=== PATIENT | female | born 1965 | race Caucasian/White ===

== ENCOUNTER 2018-07-19 11:05 | Emergency (ER) | payer OTHER ==
[2018-07-19 11:15] VITALS: BP 120/56; PULSE 64; RESP 18; TEMP 97.7
--- NOTE | 2018-07-19 11:50 | ED ---
General Adult HPI - General Chief complaint: Skin/Abscess/Foreign Body Stated complaint: blisters on hands and arms Time Seen by Provider: 07/19/18 11:16 Source: patient Limitations: no limitations - History of Present Illness Initial comments: Patient is a 53-year-old female with a history of COPD who presents with a chief complaint of itchiness and blisters to her bilateral hands. This is been going on for 3 days. Patient says that she has a history of eczema and that this is happened to her before. Patient states that at home she has use hydrocortisone cream for relief over the last day but it is not made a difference. She cannot identify any other inciting factors. There are no aggravating or alleviating factors. Patient states that she does live with other people and she is the only one affected by these symptoms. Patient denies lesions anywhere else, she states that she otherwise feels well. - Related Data Home Medications Medication Instructions Recorded Confirmed ALPRAZolam [Xanax] 1 mg PO BID 05/07/16 05/07/16 Dextroamphetamine/Amphetamine 20 mg PO TID 05/07/16 05/07/16 [Adderall] FLUoxetine HCL [PROzac] 60 mg PO DAILY 05/07/16 05/07/16 Ziprasidone [Geodon] 60 mg PO DAILY 05/07/16 05/07/16 oxyCODONE-APAP 10-325MG [Percocet 1 tab PO TID 05/07/16 05/07/16 10-325 mg] traZODone HCL [Desyrel] 100 mg PO HS 05/07/16 05/07/16 Previous Rx's Medication Instructions Recorded Triamcinolone 0.1% Cream [Kenalog 1 applicatio TOPICAL BID #15 gram 05/07/16 0.1% Cream] hydrOXYzine HCL [Atarax] 25 mg PO TID PRN #15 tab 05/07/16 Permethrin [Nix] 60 ml TP Q7D #1 bottle 07/19/18 hydrOXYzine HCL [Atarax] 50 mg PO QID PRN #20 tab 07/19/18 Allergies Allergy/AdvReac Type Severity Reaction Status Date / Time No Known Allergies Allergy Verified 05/07/16 16:51 Review of Systems ROS Statement: Those systems with pertinent positive or pertinent negative responses have been documented in the HPI. ROS Other: All systems not noted in ROS Statement are negative. Skin: Reports: lesions Past Medical History Past Medical History: COPD History of Any Multi-Drug Resistant Organisms: None Reported Past Surgical History: Section Additional Past Surgical History / Comment(s): 2 Chest tubes Past Psychological History: Anxiety, Bipolar, Depression Smoking Status: Current every day smoker Past Alcohol Use History: None Reported Past Drug Use History: None Reported General Exam Limitations: no limitations General appearance: alert, in no apparent distress Head exam: Present: atraumatic, normocephalic Eye exam: Present: normal appearance, PERRL ENT exam: Present: normal exam, mucous membranes moist Neck exam: Present: normal inspection Respiratory exam: Present: normal lung sounds bilaterally. Absent: respiratory distress Cardiovascular Exam: Present: regular rate, normal rhythm GI/Abdominal exam: Present: soft. Absent: distended, tenderness Rectal exam: Present: deferred Extremities exam: Present: normal inspection Back exam: Present: normal inspection Neurological exam: Present: alert, oriented X3 Psychiatric exam: Present: normal affect, normal mood Skin exam: Present: warm, dry, intact, other (Patient has small excoriations on the dorsal aspect of her bilateral hands, and in the webspaces of her fingers. There are small lesions proximally on her volar forearms. There is no draining or erythema noted. No foreign bodies identified) Course Vital Signs 07/19/18 11:11 Temperature 97.7 F Pulse Rate 64 Respiratory 18 Rate Blood Pressure 120/56 O2 Sat by Pulse 98 Oximetry Medical Decision Making - Medical Decision Making Patient presents with a chief complaint of itching and excoriations to her bilateral hands. On initial evaluation, vitals are stable, patient is in no acute distress. Patient states that she has been using hydrocortisone cream without relief. At this time, exam is most consistent with possible scabies however there are no ticks identified. Patient was instructed to continue using the hydrocortisone cream. She will be prescribed Atarax, and permethrin for treatment. She was instructed to follow up with primary care in 1-2 days, or return to the emergency department if new or concerning symptoms arise. Care plan was discussed with the patient, she verbalizes agreement. Disposition Clinical Impression: Urticaria Disposition: HOME SELF-CARE Condition: Good Instructions: Scabies (ED), Urticaria (ED) Is patient prescribed a controlled substance at d/c from ED?: No Referrals: Makenzie Ruby, [Primary Care Provider] - 1-2 days
== END 2018-07-19 12:03 | disposition home or self-care (01) ==
LOC: EC 11:05
DX: L50.9 Urticaria, unspecified (principal); F31.9 Bipolar disorder, unspecified; F41.9 Anxiety disorder, unspecified; F17.200 Nicotine dependence, unspecified, uncomplicated; Z79.899 Other long term (current) drug therapy; Z79.891 Long term (current) use of opiate analgesic
CPT/HCPCS: 99282

== ENCOUNTER → 2018-08-22 | Outpatient (CLI) | payer OTHER ==
--- NOTE | 2018-08-25 10:50 | MM ---
Reason for exam: screening (asymptomatic). Last mammogram was performed 3 years ago. History: Patient is postmenopausal. Physical Findings: A clinical breast exam by your physician is recommended on an annual basis and results should be correlated with mammographic findings. MG Screening Mammo w CAD Bilateral CC and MLO view(s) were taken. Prior study comparison: August 10, 2015, bilateral MG screening mammo w CAD. May 26, 2014, bilateral MG screening mammo w CAD. The breast tissue is heterogeneously dense. This may lower the sensitivity of mammography. There is no discrete abnormality. ASSESSMENT: Negative, BI-RAD 1 RECOMMENDATION: Routine screening mammogram of both breasts in 1 year.
== END | disposition home or self-care (01) ==
LOC: RADMAMWWP 09:14
PROVIDERS: ATTEND Family Medicine
DX: Z12.31 Encounter for screening mammogram for malignant neoplasm of breast (principal)
CPT/HCPCS: 77067

== ENCOUNTER 2019-03-21 13:49 | Emergency (ER) | payer OTHER ==
[2019-03-21 14:15] VITALS: BP 112/69; PULSE 73; RESP 18; TEMP 98.1
[2019-03-21] MEDS ORDERED: KETOROLAC 30 MG/ML 1 ML VIAL IM STA (15:14)
--- NOTE | 2019-03-21 15:23 | ED ---
General Adult HPI - General Chief complaint: Extremity Injury, Upper Stated complaint: Arm pain Source: patient Mode of arrival: ambulatory - History of Present Illness Initial comments: Patient is a 53-year-old female presenting to the emergency department with right wrist pain. Patient states that about 2 years ago she broke her wrist and the orthopedic service to do a proper job splinting her hand causing her a permanent deformity. Patient states that ever since she is living with chronic pain in her wrist and anterior forearm. Patient states that about 2 weeks ago the pain has gotten a worse than usual. Patient states that she feels pain along the anterior aspect of the forearm that radiates on the anterior aspect of her hand. Patient states that she feels numbness and tingling on the fourth and fifth digit. Patient also states that she has pain around the first digit. Patient states that she also has pain in the posterior aspect of the wrist. Patient states that she been taking Tylenol and ibuprofen for pain control. Patient denies any recent to her hand. - Related Data Home Medications Medication Instructions Recorded Confirmed ALPRAZolam [Xanax] 1 mg PO BID 05/07/16 05/07/16 Dextroamphetamine/Amphetamine 20 mg PO TID 05/07/16 05/07/16 [Adderall] FLUoxetine HCL [PROzac] 60 mg PO DAILY 05/07/16 05/07/16 Ziprasidone [Geodon] 60 mg PO DAILY 05/07/16 05/07/16 oxyCODONE-APAP 10-325MG [Percocet 1 tab PO TID 05/07/16 05/07/16 10-325 mg] traZODone HCL [Desyrel] 100 mg PO HS 05/07/16 05/07/16 Previous Rx's Medication Instructions Recorded Triamcinolone 0.1% Cream [Kenalog 1 applicatio TOPICAL BID #15 gram 05/07/16 0.1% Cream] hydrOXYzine HCL [Atarax] 25 mg PO TID PRN #15 tab 05/07/16 Permethrin [Nix] 60 ml TP Q7D #1 bottle 07/19/18 hydrOXYzine HCL [Atarax] 50 mg PO QID PRN #20 tab 07/19/18 Ibuprofen [Motrin] 600 mg PO Q8HR PRN #30 tab 03/21/19 Allergies Allergy/AdvReac Type Severity Reaction Status Date / Time No Known Allergies Allergy Verified 03/21/19 14:15 Review of Systems ROS Statement: Those systems with pertinent positive or pertinent negative responses have been documented in the HPI. ROS Other: All systems not noted in ROS Statement are negative. Past Medical History Past Medical History: COPD History of Any Multi-Drug Resistant Organisms: None Reported Past Surgical History: Section Additional Past Surgical History / Comment(s): 2 Chest tubes Past Psychological History: Anxiety, Bipolar, Depression Smoking Status: Current every day smoker Past Alcohol Use History: None Reported Past Drug Use History: None Reported General Exam Limitations: no limitations General appearance: alert, in no apparent distress Head exam: Present: atraumatic, normocephalic, normal inspection Eye exam: Present: normal appearance Respiratory exam: Present: normal lung sounds bilaterally Cardiovascular Exam: Present: regular rate, normal rhythm, normal heart sounds Right Forearm Wrist exam: Present: tenderness, swelling (Mild right wrist), deformity (Deformity at the distal ulna), tenderness over anatomical snuff box, other (Negative tinel test). Absent: full ROM (Limited range of motion with extension and flexion.), abrasion, laceration, ecchymosis Vascular: Present: normal capillary refill, radial pulse (+2), ulnar pulse (+2). Absent: vascular compromise Neurological exam: Present: alert, oriented X3 Psychiatric exam: Present: normal affect, normal mood Skin exam: Present: warm, normal color Course Vital Signs 03/21/19 14:11 Temperature 98.1 F Pulse Rate 73 Respiratory 18 Rate Blood Pressure 112/69 O2 Sat by Pulse 99 Oximetry Medical Decision Making - Medical Decision Making Patient is a 53-year-old female presenting to the emergency department with right wrist pain. X-ray was ordered of the right wrist to rule out any injuries over the anatomical snuffbox. Patient was given a dose of Toradol due to pain. X-ray was unremarkable for any acute fracture as suggested chronic osteophytic changes due to improper fusion of the previous fracture. Patient advised to take ibuprofen to control the pain. Patient also advised to return to the emergency department if symptoms worsen. Patient advised to follow with orthopedics for chronic management. Case discussed with physician. Disposition Clinical Impression: Wrist pain, chronic Disposition: HOME SELF-CARE Condition: Stable Instructions (If sedation given, give patient instructions): Hand Sprain (ED) Additional Instructions: Please see prescribed medication as directed. Please follow-up with orthopedics. Please return to emergency department if symptoms worsen. Is patient prescribed a controlled substance at d/c from ED?: No Referrals: Makenzie Ruby DO [Primary Care Provider] - 1-2 days Kike Jackson MD [STAFF PHYSICIAN] - 1-2 days Time of Disposition: 16:08
--- NOTE | 2019-03-21 15:41 | XR ---
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 Adjacent soft tissue swelling. Degenerative s purring at the distal radial ulnar joint with positive ulnar variance. There is possible abutment of the distal ulna with the proximal ulnar aspect of the lunate. Moderate degenerative changes at the tr iscaphe joint and mild at the base of the thumb. Old healed fracture deformity of the distal radial m etaphysis with dorsal angulation. IMPRESSION: 1. Chronic distal radial fracture deformity, healed in impaction and dorsal angulation. This results in secondary positive ulnar variance. 2. 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 3. Additional chronic ununited fracture fragment of the ulnar styloid process with adjacent soft tiss ue swelling. 4. Moderate OA at the base of the thumb.
== END 2019-03-21 16:30 | disposition home or self-care (01) ==
LOC: EC 13:49
DX: G89.29 Other chronic pain (principal); M25.531 Pain in right wrist; F41.9 Anxiety disorder, unspecified; F32.9 Major depressive disorder, single episode, unspecified; F17.200 Nicotine dependence, unspecified, uncomplicated; Z87.81 Personal history of (healed) traumatic fracture; Z79.891 Long term (current) use of opiate analgesic; Z79.899 Other long term (current) drug therapy
CPT/HCPCS: 73110; 99283; 96372; J1885

== ENCOUNTER 2019-06-30 12:51 | Inpatient (IN) | payer MEDICAID, OTHER ==
[2019-06-30 13:02] VITALS: RESP 18
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
[2019-06-30 16:27] LABS: Amphetamine Screen,Urine Not Detected (NotDetected); Barbiturate Screen,Urine Not Detected (NotDetected); Benzodiazepines Screen,Urine Detected (NotDetected); Cocaine Screen,Urine Detected (NotDetected); Methadone Screen, Urine Not Detected (NotDetected); Opiate Screen,Urine Not Detected (NotDetected); Oxycodone Screen, Urine Not Detected (NotDetected); Phencyclidine Screen,Urine Not Detected (NotDetected); Tricyclic Antidepressant,Urine Not Detected (NotDetected); Urn Cannabinoid Scrn Detected (NotDetected)
[2019-06-30] MEDS ORDERED: HALOPERIDOL LACTATE 5 MG/ML 1 ML VIAL IM PRN (17:35)
[2019-06-30] MEDS ORDERED: MAGNESIUM HYDROXIDE 2,400 MG/10 ML CUP PO PRN (17:36)
[2019-06-30] MEDS ORDERED: MAG HYDROX/AL HYDROX/SIMETH 30 ML CUP PO PRN (17:36)
[2019-06-30 18:27] VITALS: BMI 25.1
[2019-06-30] MEDS ORDERED: PNEUMOCOCCAL VACC-PNEUMOVAX 23 25 MCG/0.5 ML VIAL IM ONE (18:56)
[2019-06-30] MEDS: ZIPRASIDONE 80 MG CAP PO SCH (20:56)
[2019-06-30] MEDS: traZODone HCL 50 MG TAB PO SCH (20:56)
[2019-06-30] MEDS: ACETAMINOPHEN TAB 325 MG TAB PO PRN (20:58)
[2019-06-30] MEDS: ALPRAZolam 0.5 MG TAB PO PRN (20:58)
[2019-07-01 08:08] LABS: Basophils # (A) 0.1 k/uL (0-0.2); Basophils % (A) 1 %; Eosinophils # (A) 0.4 k/uL (0-0.7); Eosinophils % (A) 5 %; HCT 42.2 % (34.0-46.0); HGB 14.3 gm/dL (11.4-16.0); Lymphocytes # (A) 3.7 k/uL (1.0-4.8); Lymphocytes % (A) 52 %; MCH 29.8 pg (25.0-35.0); MCHC 33.8 g/dL (31.0-37.0); MCV 88.3 fL (80.0-100.0); Mean Platelet Volume 6.7; Monocytes # (A) 0.4 k/uL (0-1.0); Monocytes % (A) 6 %; Neutrophils # (A) 2.5 k/uL (1.3-7.7); Neutrophils % (A) 35 %; Platelet Count 316 k/uL (150-450); RBC 4.78 m/uL (3.80-5.40); RDW 13.2 % (11.5-15.5); WBC 7.1 k/uL (3.8-10.6)
[2019-07-01 08:28] LABS: ALT 26 U/L (9-52); AST 30 U/L (14-36); African American GFR (CKD) >90 (>60 ml/min/1.73 sqM); Albumin 3.3 g/dL (3.5-5.0); Alkaline Phosphatase 49 U/L (38-126); Anion Gap 7 mmol/L; Blood Urea Nitrogen 12 mg/dL (7-17); Calcium 9.1 mg/dL (8.4-10.2); Carbon Dioxide 26 mmol/L (22-30); Chloride 108 mmol/L (98-107); Cholesterol 218 mg/dL (<200); Glucose 93 mg/dL (74-99); HDL Cholesterol 52 mg/dL (40-60); LDL Cholesterol,Calculated 121 mg/dL (0-99); Non-African American GFR(CKD) 88 (>60 ml/min/1.73 sqM); Potassium 3.7 mmol/L (3.5-5.1); Sodium 141 mmol/L (137-145); Total Bilirubin 0.2 mg/dL (0.2-1.3); Total Protein 5.8 g/dL (6.3-8.2); Triglycerides 225 mg/dL (<150)
[2019-07-01] MEDS ORDERED: FLUoxetine HCL 20 MG CAP PO SCH (09:00)
[2019-07-01] MEDS: NICOTINE 21MG/24HR PATCH TRANSDERM SCH (10:29)
--- NOTE | 2019-07-01 12:30 | P.HP ---
Psychiatric H&P - . H&P Date: 07/01/19 History & Physical: Allergies Allergy/AdvReac Type Severity Reaction Status Date / Time No Known Allergies Allergy Verified 06/30/19 13:59 Vital Signs Temp 98.6 F 06/30/19 17:00 Pulse 67 06/30/19 16:41 Resp 18 06/30/19 17:00 BP 105/80 06/30/19 17:00 Pulse Ox 97 06/30/19 16:41 Intake & Output 06/30/19 07/01/19 07/01/19 18:59 06:59 18:59 Weight 72.745 kg Laboratory Last Values WBC 7.1 k/uL (3.8-10.6) 07/01/19 07:46 RBC 4.78 m/uL (3.80-5.40) 07/01/19 07:46 Hgb 14.3 gm/dL (11.4-16.0) 07/01/19 07:46 Hct 42.2 % (34.0-46.0) 07/01/19 07:46 MCV 88.3 fL (80.0-100.0) 07/01/19 07:46 MCH 29.8 pg (25.0-35.0) 07/01/19 07:46 MCHC 33.8 g/dL (31.0-37.0) 07/01/19 07:46 RDW 13.2 % (11.5-15.5) 07/01/19 07:46 Plt Count 316 k/uL (150-450) 07/01/19 07:46 Neutrophils % 35 % 07/01/19 07:46 Lymphocytes % 52 % 07/01/19 07:46 Monocytes % 6 % 07/01/19 07:46 Eosinophils % 5 % 07/01/19 07:46 Basophils % 1 % 07/01/19 07:46 Neutrophils # 2.5 k/uL (1.3-7.7) 07/01/19 07:46 Lymphocytes # 3.7 k/uL (1.0-4.8) 07/01/19 07:46 Monocytes # 0.4 k/uL (0-1.0) 07/01/19 07:46 Eosinophils # 0.4 k/uL (0-0.7) 07/01/19 07:46 Basophils # 0.1 k/uL (0-0.2) 07/01/19 07:46 Sodium 141 mmol/L (137-145) 07/01/19 07:46 Potassium 3.7 mmol/L (3.5-5.1) 07/01/19 07:46 Chloride 108 mmol/L (98-107) H 07/01/19 07:46 Carbon Dioxide 26 mmol/L (22-30) 07/01/19 07:46 Anion Gap 7 mmol/L 07/01/19 07:46 BUN 12 mg/dL (7-17) 07/01/19 07:46 Creatinine 0.78 mg/dL (0.52-1.04) 07/01/19 07:46 Est GFR (CKD-EPI)AfAm >90 (>60 ml/min/1.73 sqM) 07/01/19 07:46 Est GFR (CKD-EPI)NonAf 88 (>60 ml/min/1.73 sqM) 07/01/19 07:46 Glucose 93 mg/dL (74-99) 07/01/19 07:46 Calcium 9.1 mg/dL (8.4-10.2) 07/01/19 07:46 Total Bilirubin 0.2 mg/dL (0.2-1.3) 07/01/19 07:46 AST 30 U/L (14-36) 07/01/19 07:46 ALT 26 U/L (9-52) 07/01/19 07:46 Alkaline Phosphatase 49 U/L (38-126) 07/01/19 07:46 Total Protein 5.8 g/dL (6.3-8.2) L 07/01/19 07:46 Albumin 3.3 g/dL (3.5-5.0) L 07/01/19 07:46 Triglycerides 225 mg/dL (<150) H 07/01/19 07:46 Cholesterol 218 mg/dL (<200) H 07/01/19 07:46 LDL Cholesterol, Calc 121 mg/dL (0-99) H 07/01/19 07:46 HDL Cholesterol 52 mg/dL (40-60) 07/01/19 07:46 TSH 6.620 mIU/L (0.465-4.680) H 07/01/19 07:46 Free T4 1.24 ng/dL (0.78-2.19) 07/01/19 07:46 Urine Opiates Screen Not Detected (NotDetected) 06/30/19 16:00 Ur Oxycodone Screen Not Detected (NotDetected) 06/30/19 16:00 Urine Methadone Screen Not Detected (NotDetected) 06/30/19 16:00 Ur Propoxyphene Screen Not Detected (NotDetected) 06/30/19 16:00 Ur Barbiturates Screen Not Detected (NotDetected) 06/30/19 16:00 U Tricyclic Antidepress Not Detected (NotDetected) 06/30/19 16:00 Ur Phencyclidine Scrn Not Detected (NotDetected) 06/30/19 16:00 Ur Amphetamines Screen Not Detected (NotDetected) 06/30/19 16:00 U Methamphetamines Scrn Not Detected (NotDetected) 06/30/19 16:00 U Benzodiazepines Scrn Detected (NotDetected) H 06/30/19 16:00 Urine Cocaine Screen Detected (NotDetected) H 06/30/19 16:00 U Marijuana (THC) Screen Detected (NotDetected) H 06/30/19 16:00 07/01/19 12:16 IDENTIFYING DATA: Patient is a 53-year-old female who currently lives in a house with her long-term partner, 4 kids and currently works at a factory. HPI: Patient presented to the hospital with ongoing and increasing symptoms of d epression with suicidal ideations, no plan was given. Patient states that previously her Adderall was cut down by her outpatient psychiatrist and states that she began feeling "off" and could not concentrate. She states that approximately one month ago she relapsed back on crack cocaine and has been using approximately $100 in the past month. She states that the crack cocaine for her was an escape from her daily stressors in her family life. She states that she feels overwhelmed financially and with taking care of her children and moving into a new place. Patient claims that she feels that she doesn't think she is worth having a normal life. Patient claims that she feels "out of control" and not like herself when she is using drugs. Patient was tearful yet was cooperative and directable during the interview. She states that currently she is sleeping well at night and has a good appetite. She denies any cravings at this time. Patient denies any suicidal or homicidal ideations intent or plan. At this time patient denies any auditory or visual hallucinations. Patient denies any flight of ideas racing thoughts and increased in goal directed behavior. PAST PSYCHIATRIC HISTORY: Patient follows up with Dr. Schafer for her psychiatric care as an outpatient. Patient claims that she is on Geodon 80 mg daily at bedtime trazodone 150 mg daily at bedtime Prozac 40 mg daily Xanax 1 mg twice a day Adderall 20 mg twice a day and Lamictal 150 mg nightly. Patient states that she has been diagnosed with schizophrenia, bipolar, depression, anxiety. Patient denies any previous suicide attempts and admits to multiple admissions in the past. PMH: COPD ALLERGIES: NKDA CHEMICAL DEPENDENCY HISTORY: Relapsed on crack cocaine in the past month has been using $100/month. Patient states that she was using crack cocaine in her early 20s up until now. Patient admits to smoking marijuana 1-2 times per week. She denies drinking alcohol. Patient admits to smoking one half a pack a day of cigarettes. FAMILY PSYCHIATRIC/SUBSTANCE USE HISTORY: Claims that multiple people in her family have psychiatric and substance use problems however claims that they minimize it and has never gotten a diagnosis. SOCIAL HISTORY: Patient was born and raised in [place] and moved [place] [facility]. Patient obtained a GED and attended some college. Patient has worked multiple jobs in the past and recently has been working in a factory. Patient is currently living with her partner and has 4 kids in the house. MENTAL STATUS EXAM: General Appearance: Patient appears to be stated age is alert, and cooperative. Patient appears to be tearful and sobbing at times during the interview Behavior: Patient is calmly seated without any agitated behavior. Speech: Patient's speech is fluent and nonpressured. Soft-spoken Mood/Affect: Patient reports their mood is "down", affect is congruent and dysthymic Suicidality/Homicidality: Patient denies having any suicidal or homicidal ideation intent or plan. Perceptions: Patient denies any auditory or visual hallucinations. Though content/process: There is no evidence of any delusional thought content and thought process is linear and goal-directed. Memory and concentration: AOX3, grossly intact for the purposes of this session. Can spell "WORLD" backwards Judgment and insight: Poor STRENGTHS/WEAKNESSES: Has good social support. Patient has poor coping skills and multiple stressors at home. INTELLECT: Average intellect IMPRESSIONS: Bipolar disorder, depressed Anxiety disorder unspecified Reported history of ADHD Cocaine use disorder Cannabis use disorder Nicotine use disorder PLAN: -Patient is admitted under voluntary status to [facility] for stabilization of psychiatric symptoms and safety. Patient signed adult voluntary form and medication consent and is placed in patient's chart. -Will start patient on her home dose of Geodon 80 mg daily at bedtime for mood stabilization. We'll also restart trazodone 150 mg daily at bedtime for mood and insomnia. Patient agreed to start sertraline 50 mg daily for mood and anxiety. We'll start Xanax 0.5 mg twice a day when necessary for anxiety. This has been cut down from 1 mg twice a day. We'll also restart patient on her home dose of Adderall 20 mg twice a day for ADHD. -MAPS was reviewed-patient has been getting steady scripts of Xanax and Adderall from the same provider since the beginning of the year. -Haldol PRN for agitation/aggression -Patient was counselled on substance abuse and desired to cut back on use. We'll offer patient rehab and substance use treatment. -Patient was informed of the risks, benefits and side effects of the medication and patient verbally consented to taking the medications. Patient signed med consent form and was placed in chart. -NRT was offered - ordered nicotine patch -SW on board for discharge planning. Patient will likely need to be referred to rehab if she is willing. 07/01/19 12:29
[2019-07-01] MEDS: SERTRALINE 50 MG TAB PO SCH (12:53)
[2019-07-01] MEDS: lamoTRIgine 100 MG TAB PO SCH (12:53)
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
[2019-07-01] MEDS: ACETAMINOPHEN TAB 325 MG TAB PO PRN (16:39)
[2019-07-01 19:55] LABS: Hemoglobin A1C 5.2 % (4.0-6.0)
[2019-07-01] MEDS: traZODone HCL 50 MG TAB PO SCH (21:07)
[2019-07-01] MEDS: ZIPRASIDONE 80 MG CAP PO SCH (21:07)
[2019-07-01] MEDS: ATORVASTATIN 20 MG TAB PO SCH (21:07)
[2019-07-01] MEDS: ALPRAZolam 0.5 MG TAB PO PRN (21:09)
[2019-07-02] MEDS: NICOTINE 21MG/24HR PATCH TRANSDERM SCH (08:42)
[2019-07-02] MEDS: lamoTRIgine 100 MG TAB PO SCH (08:43)
[2019-07-02] MEDS: SERTRALINE 50 MG TAB PO SCH (08:43)
[2019-07-02] MEDS: ALPRAZolam 0.5 MG TAB PO PRN ×2 (08:44→20:09)
--- NOTE | 2019-07-02 10:41 | P.PN ---
Progress Note - Text Progress Note Date: 07/02/19 Interval History: Patient was seen near the nurse's station and was agreeable to speak to mortgage or loan underwriter in the office. Patient states that she is feeling mildly better than yesterday claims that she is still recovering from her drug use and problems at home. Patient states that she did speak with her family yesterday who wanted her to come home when she is appropriate. Patient claims that her anxiety and mood are improving mildly. She states that she slept better last night and avoided conflict with other patients. She states that she has been attempting to go to groups. Today patient has doubts about going to rehab and states that she feels that she can quit on her own. She claims that she has been to rehab too many times in the past and feels that she could teach the classes at this point. She has a fair appetite and fair energy level. At this time patient denies any suicidal or homical ideations, intent or plan. Patient denies any auditory, visual hallucinations and denies any paranoia or delusions. Patient denies any side effects from the medications and has been compliant with meds. Mental Status Exam: General Appearance: Patient appears to be stated age is alert, and cooperative. Patient appears to have a brighter affect this morning. Behavior: Patient is calmly seated without any agitated behavior. Speech: Patient's speech is fluent and nonpressured. Soft-spoken Mood/Affect: Patient reports their mood is "a bit better", affect is congruent Suicidality/Homicidality: Patient denies having any suicidal or homicidal ideation intent or plan. Perceptions: Patient denies any auditory or visual hallucinations. Though content/process: There is no evidence of any delusional thought content and thought process is linear and goal-directed. Memory and concentration: AOX3, grossly intact for the purposes of this session. Judgment and insight: Poor, improving Assessment Bipolar disorder, depressed Anxiety disorder unspecified Reported history of ADHD Cocaine use disorder Cannabis use disorder Nicotine use disorder Plan: -Patient continues to meet criteria for inpatient psychiatric admission for symptom stabilization and safety. Patient is admitted under voluntary status. -Medications: We will continue Geodon 80 mg daily at bedtime for mood stabilizat ion. We'll continue trazodone 150 mg daily at bedtime for mood and insomnia. We'll consider increasing sertraline 100 mg daily tomorrow if if necessary. Will continue Xanax 0.5 mg twice a day when necessary for anxiety. At this time no need to restart patient on Adderall home dose. Lamictal was increased to 125 mg starting tomorrow for mood stabilization/depression -When necessary Haldol for agitation/aggression. -NRT - nicotine patch -SW on board for discharge planning. Patient was encouraged to reconsider rehab however patient would like to go home upon stabilization and discharge. Patient may be open to NA meetings in the community.
--- NOTE | 2019-07-02 12:01 | ECHOF ---
Referral Reason:Cocaine use/EKG MEASUREMENTS -------- HEIGHT: 170.2 cm WEIGHT: 72.6 kg BP: RVIDd: 3.0 cm (< 3.3) IVSd: 1.1 cm (0.6 - 1.1) LVIDd: 3.9 cm (3.9 - 5.3) LVPWd: 1.2 cm (0.6 - 1.1) IVSs: 1.2 cm LVIDs: 2.7 cm LVPWs: 1.3 cm LAESV Index (A-L): 49.24 ml/m Ao Diam: 2.9 cm (2.0 - 3.7) AV Cusp: 1.8 cm (1.5 - 2.6) LA Diam: 4.2 cm (2.7 - 3.8) EPSS: 0.2 cm MV E Brant: 0.78 m/s MV DecT: 229 ms MV A Brant: 0.74 m/s MV E/A Ratio: 1.05 AR PHT: 505 ms RAP: 5.00 mmHg RVSP: 33.37 mmHg MV EF SLOPE: 144.61 mm/s (70 - 150) MV EXCURSION: 1.44 cm (> 18.000) FINDINGS -------- Sinus rhythm. This was a technically good study. The left ventricular size is normal. There is mild concentric left ventricular hypertrophy. Overa ll left ventricular systolic function is normal with, an EF between 55 - 60 %. The diastolic fillin g pattern is normal for the age of the patient. The right ventricle is normal in size. Left atrium is severely dilated by volume. The right atrial size is normal. Interatrial and interventricular septum intact. The aortic valve is trileaflet and appears structurally normal. Trace amount of aortic regurgitatio n. There is no evidence of aortic stenosis. Mild mitral regurgitation is present. Mild tricuspid regurgitation present. There is mild pulmonary hypertension. The right ventricular systolic pressure, as measured by Doppler, is 33.37mmHg. There is no pulmonic regurgitation present. The aortic root size is normal. The inferior vena cava was not well visualized. There is no pericardial effusion. CONCLUSIONS -------- 1. Sinus rhythm. 2. This was a technically good study. 3. The left ventricular size is normal. 4. There is mild concentric left ventricular hypertrophy. 5. Overall left ventricular systolic function is normal with, an EF between 55 - 60 %. 6. The diastolic filling pattern is normal for the age of the patient. 7. The right ventricle is normal in size. 8. Left atrium is severely dilated by volume. 9. The right atrial size is normal. 10. Interatrial and interventricular septum intact. 11. The aortic valve is trileaflet and appears structurally normal. 12. Trace amount of aortic regurgitation. 13. There is no evidence of aortic stenosis. 14. Mild mitral regurgitation is present. 15. Mild tricuspid regurgitation present. 16. There is mild pulmonary hypertension. 17. The right ventricular systolic pressure, as measured by Doppler, is 33.37mmHg. 18. There is no pulmonic regurgitation present. 19. The aortic root size is normal. 20. The inferior vena cava was not well visualized. 21. There is no pericardial effusion. VETERINARY TECHNICIAN: Anjelica Narayanan RDCS
[2019-07-02] MEDS: ZIPRASIDONE 80 MG CAP PO SCH (20:08)
[2019-07-02] MEDS: traZODone HCL 50 MG TAB PO SCH (20:08)
[2019-07-02] MEDS: ATORVASTATIN 20 MG TAB PO SCH (20:08)
[2019-07-03 05:43] VITALS: BP 98/72; PULSE 81; TEMP 98
[2019-07-03] MEDS: NICOTINE 21MG/24HR PATCH TRANSDERM SCH (08:04)
[2019-07-03] MEDS: ALPRAZolam 0.5 MG TAB PO PRN (08:05)
[2019-07-03] MEDS ORDERED: SERTRALINE 50 MG TAB PO SCH (09:00)
[2019-07-03] MEDS ORDERED: lamoTRIgine 25 MG TAB PO SCH (09:00)
--- NOTE | 2019-07-03 11:54 | P.DS ---
Providers Date of admission: 06/30/19 16:35 Expected date of discharge: 07/03/19 Attending physician: Virgil Banuelos MD Consults: 06/30/19 17:36 Consult Physician Routine Consulting Provider: Jesus Hyde Jr Consult Reason/Comments: H&P and medical Do you want consulting provider notified?: Already Contacted Primary care physician: Jesus Hyde - Discharge Diagnosis(es) (1) Bipolar depression Current Visit: Yes Status: Acute Priority: High (2) Anxiety Current Visit: Yes Status: Acute Priority: Medium (3) Attention deficit disorder (ADD) in adult Current Visit: Yes Status: Acute Priority: Low (4) Cocaine use disorder Current Visit: Yes Status: Acute Priority: High (5) Cannabis abuse Current Visit: Yes Status: Acute Priority: Medium (6) Nicotine dependence Current Visit: Yes Status: Acute Priority: Low Hospital Course: Admission HPI: Patient is a 53-year-old female who currently lives in a house with her long-term partner, 4 kids and currently works at a factory. Patient presented to the hospital with ongoing and increasing symptoms of depression with suicidal ideations, no plan was given. Patient states that previously her Adderall was cut down by her outpatient psychiatrist and states that she began feeling "off" and could not concentrate. She states that approximately one month ago she relapsed back on crack cocaine and has been using approximately $100 in the past month. She states that the crack cocaine for her was an escape from her daily stressors in her family life. She states that she feels overwhelmed financially and with taking care of her children and moving into a new place. Patient claims that she feels that she doesn't think she is worth having a normal life. Patient claims that she feels "out of control" and not like herself when she is using drugs. Patient was tearful yet was cooperative and directable during the interview. She states that currently she is sleeping well at night and has a good appetite. She denies any cravings at this time. Patient denies any suicidal or homicidal ideations intent or plan. At this time patient denies any auditory or visual hallucinations. Patient denies any flight of ideas racing thoughts and increased in goal directed behavior. Hospital course: Upon admission to the unit patient was initially tearful, depressed and anxious with suicidal ideation. Patient was agreeable to engage in treatment and was voluntary. Patient got along well with other patients on the unit and followed unit protocol. Patient was compliant with the medications and denied any side effects throughout hospital course. Patient was started on restarted on her home medications including Geodon 80 mg daily at bedtime for mood stabilization, trazodone 150 mg daily at bedtime for mood and insomnia. Patient was also restarted on her Xanax which she gets as an outpatient however was decreased to 0.5 mg twice a day when necessary for anxiety. Lamictal was restarted at a lower dose, 100 mg and increased up to 150 mg daily for mood stabilization. Patient's home dose of Adderall was held during this admission. Patient spoke of her stressors and engaged in therapy both group and individual. Patient was also seen by medical team for history and physical exam. He was initially found on EKG on admission the there was a suspicion for a septal infarct however patient denied any chest pain or any other cardiac symptoms. An echocardiogram was done, (please see results) which overall did not find any major evidence for an acute infarction. Throughout the course of the hospitalization patient gradually improved with regards to mood anxiety and became future oriented and focused on wanting to quit her substance use. On the day of discharge patient denied any suicidal or homicidal ideations intent or plan denied any auditory or visual hallucinations. Patient denied any paranoia and did not endorse any delusions. Patient does have a significant history of substance abuse and was counseled on abstaining from all substances including alcohol and marijuana. Patient was also counseled on the medications and need for regular compliance and was encouraged to follow-up with their outpatient appointment for mental health and also for primary care. Prior to discharge a family meeting will be arranged by geriatric social worker to answer any questions and ensure safety upon discharge. Mental status exam: General Appearance: Patient appears to be stated age is alert, pleasant, and cooperative. Patient is in no acute distress and has fair hygiene and grooming Behavior: Patient is calmly seated without any agitated behavior. Speech: Patient's speech is fluent and nonpressured. Mood/Affect: Patient reports their mood is "good", affect is congruent and euthymic. Suicidality/Homicidality: Patient denies having any suicidal or homicidal ideation intent or plan. Perceptions: Patient denies any auditory or visual hallucinations. Though content/process: There is no evidence of any delusional thought content and thought process is linear and goal-directed. Memory and concentration: AOX3, grossly intact for the purposes of this session. Can spell "WORLD" backwards correctly. Judgment and insight: fair, improved Impression: Bipolar disorder, depressed Anxiety disorder unspecified History of ADHD Cannabis use disorder Cocaine use disorder Nicotine use disorder Plan: -Continue with discharge today as patient has improved and stabilized psychiatrically and no longer remains an imminent threat to herself and/or others. -Continue medications: As follows, patient can continue trazodone 150 mg daily daily at bedtime for mood and insomnia Geodon 80 mg daily at bedtime for mood stabilization, Xanax 0.5 mg twice a day when necessary for anxiety, Lamictal 150 mg daily for mood stabilization. -Patient was counseled on the need for medication compliance and appropriate follow-up at mental health and also primary care for medical issues. Patient verbalized understanding and agreed. -Patient will be following up with Dr. Schafer outpatient psychiatrist on 07/06/2019. -Social work to give patient resources for outpatient substance use treatment, specifically for NA/AA meetings as patient was interested in this. Patient was offered inpatient substance abuse rehab however she claims that she would like to get back to her family and cannot afford to leave them. nutrition services worker to conduct a family meeting with boyfriend prior to patient's discharge to ensure safety. -Patient counseled on abstaining from recreational drugs and marijuana and alcohol. Was informed/educated on the adverse effects on their physical and mental health. -Patient was instructed to return to the hospital or seek immediate medical care if their psychiatric or medical systems do worsen or reoccur. Allergies Allergy/AdvReac Type Severity Reaction Status Date / Time No Known Allergies Allergy Verified 06/30/19 13:59 Laboratory Results WBC 7.1 k/uL (3.8-10.6) 07/01/19 07:46 RBC 4.78 m/uL (3.80-5.40) 07/01/19 07:46 Hgb 14.3 gm/dL (11.4-16.0) 07/01/19 07:46 Hct 42.2 % (34.0-46.0) 07/01/19 07:46 MCV 88.3 fL (80.0-100.0) 07/01/19 07:46 MCH 29.8 pg (25.0-35.0) 07/01/19 07:46 MCHC 33.8 g/dL (31.0-37.0) 07/01/19 07:46 RDW 13.2 % (11.5-15.5) 07/01/19 07:46 Plt Count 316 k/uL (150-450) 07/01/19 07:46 Neutrophils % 35 % 07/01/19 07:46 Lymphocytes % 52 % 07/01/19 07:46 Monocytes % 6 % 07/01/19 07:46 Eosinophils % 5 % 07/01/19 07:46 Basophils % 1 % 07/01/19 07:46 Neutrophils # 2.5 k/uL (1.3-7.7) 07/01/19 07:46 Lymphocytes # 3.7 k/uL (1.0-4.8) 07/01/19 07:46 Monocytes # 0.4 k/uL (0-1.0) 07/01/19 07:46 Eosinophils # 0.4 k/uL (0-0.7) 07/01/19 07:46 Basophils # 0.1 k/uL (0-0.2) 07/01/19 07:46 Sodium 141 mmol/L (137-145) 07/01/19 07:46 Potassium 3.7 mmol/L (3.5-5.1) 07/01/19 07:46 Chloride 108 mmol/L (98-107) H 07/01/19 07:46 Carbon Dioxide 26 mmol/L (22-30) 07/01/19 07:46 Anion Gap 7 mmol/L 07/01/19 07:46 BUN 12 mg/dL (7-17) 07/01/19 07:46 Creatinine 0.78 mg/dL (0.52-1.04) 07/01/19 07:46 Est GFR (CKD-EPI)AfAm >90 (>60 ml/min/1.73 sqM) 07/01/19 07:46 Est GFR (CKD-EPI)NonAf 88 (>60 ml/min/1.73 sqM) 07/01/19 07:46 Glucose 93 mg/dL (74-99) 07/01/19 07:[address] Glu mg/dL 103 07/01/19 07:46 Hemoglobin A1c 5.2 % (4.0-6.0) 07/01/19 07:46 Calcium 9.1 mg/dL (8.4-10.2) 07/01/19 07:46 Total Bilirubin 0.2 mg/dL (0.2-1.3) 07/01/19 07:46 AST 30 U/L (14-36) 07/01/19 07:46 ALT 26 U/L (9-52) 07/01/19 07:46 Alkaline Phosphatase 49 U/L (38-126) 07/01/19 07:46 Total Protein 5.8 g/dL (6.3-8.2) L 07/01/19 07:46 Albumin 3.3 g/dL (3.5-5.0) L 07/01/19 07:46 Triglycerides 225 mg/dL (<150) H 07/01/19 07:46 Cholesterol 218 mg/dL (<200) H 07/01/19 07:46 LDL Cholesterol, Calc 121 mg/dL (0-99) H 07/01/19 07:46 HDL Cholesterol 52 mg/dL (40-60) 07/01/19 07:46 TSH 6.620 mIU/L (0.465-4.680) H 07/01/19 07:46 Free T4 1.24 ng/dL (0.78-2.19) 07/01/19 07:46 Urine Opiates Screen Not Detected (NotDetected) 06/30/19 16:00 Ur Oxycodone Screen Not Detected (NotDetected) 06/30/19 16:00 Urine Methadone Screen Not Detected (NotDetected) 06/30/19 16:00 Ur Propoxyphene Screen Not Detected (NotDetected) 06/30/19 16:00 Ur Barbiturates Screen Not Detected (NotDetected) 06/30/19 16:00 U Tricyclic Antidepress Not Detected (NotDetected) 06/30/19 16:00 Ur Phencyclidine Scrn Not Detected (NotDetected) 06/30/19 16:00 Ur Amphetamines Screen Not Detected (NotDetected) 06/30/19 16:00 U Methamphetamines Scrn Not Detected (NotDetected) 06/30/19 16:00 U Benzodiazepines Scrn Detected (NotDetected) H 06/30/19 16:00 Urine Cocaine Screen Detected (NotDetected) H 06/30/19 16:00 U Marijuana (THC) Screen Detected (NotDetected) H 06/30/19 16:00 Vital Signs Temp 98 F 07/03/19 05:43 Pulse 81 07/03/19 05:43 Resp 18 07/03/19 05:43 BP 98/72 07/03/19 05:43 Pulse Ox 97 06/30/19 16:41 Patient Condition at Discharge: Stable Plan - Discharge Summary New Discharge Prescriptions: New RX: Ziprasidone [Geodon] 80 mg PO HS cap RX: Nicotine 21Mg/24Hr Patch [Habitrol] 1 patch TRANSDERM DAILY #7 patch RX: Atorvastatin [Lipitor] 20 mg PO HS tab RX: ALPRAZolam [Xanax] 0.5 mg PO BID PRN tab PRN Reason: Anxiety RX: Sertraline [Zoloft] 50 mg PO DAILY #7 tab Continue RX: Dextroamphetamine/Amphetamine [Adderall] 20 mg PO BID@0800,1300 RX: lamoTRIgine [LaMICtal] 150 mg PO HS RX: traZODone HCL 150 mg PO HS Discontinued RX: FLUoxetine HCL [PROzac] 60 mg PO DAILY ALPRAZolam [Xanax] 1 mg PO BID lamoTRIgine [LaMICtal] 100 mg PO DAILY Ziprasidone [Geodon] 80 mg PO HS Discharge Medication List RX: Dextroamphetamine/Amphetamine [Adderall] 20 mg PO BID@0800,1300 05/07/16 [History] RX: lamoTRIgine [LaMICtal] 150 mg PO HS 06/30/19 [History] RX: traZODone HCL 150 mg PO HS 06/30/19 [History] RX: ALPRAZolam [Xanax] 0.5 mg PO BID PRN tab 07/03/19 [Rx] RX: Atorvastatin [Lipitor] 20 mg PO HS tab 07/03/19 [Rx] RX: Nicotine 21Mg/24Hr Patch [Habitrol] 1 patch TRANSDERM DAILY #7 patch 07/03/19 [Rx] RX: Sertraline [Zoloft] 50 mg PO DAILY #7 tab 07/03/19 [Rx] RX: Ziprasidone [Geodon] 80 mg PO HS cap 07/03/19 [Rx] Follow up Appointment(s)/Referral(s): [facility] [Outside] - 07/06/19 10:40 am (Dr Schafer ) Jesus Hyde Jr, DO [Primary Care Provider] - 1-2 days Patient Instructions/Handouts: How to Stop Smoking (DC), Depression (DC), Suicide Prevention (DC) Activity/Diet/Wound Care/Special Instructions: Activity and diet as tolerated. No guns or weapons in the home. Refrain from alcohol and street drugs not prescribed by your physicians. Take all your medications as prescribed, and attend all your follow up appointments as scheduled. If in need of medication refills, please go to your primary care physicians, or your out patient psychiatrist. If in crisis, please call or go to your nearest ER for an evaluation. Discharge Disposition: HOME SELF-CARE
== END 2019-07-03 12:06 | disposition home or self-care (01) | DRG 885 ==
LOC: EC 12:51 → 3MHU 16:35
PROVIDERS: ADMIT Psychiatry & Neurology Psychiatry; ATTEND Psychiatry & Neurology Psychiatry
DX: F31.30 Bipolar disorder, current episode depressed, mild or moderate severity, unspecified (principal); R45.851 Suicidal ideations; F41.9 Anxiety disorder, unspecified; E78.00 Pure hypercholesterolemia, unspecified; E78.5 Hyperlipidemia, unspecified; F12.10 Cannabis abuse, uncomplicated; F14.10 Cocaine abuse, uncomplicated; Z71.51 Drug abuse counseling and surveillance of drug abuser; F17.299 Nicotine dependence, other tobacco product, with unspecified nicotine-induced disorders; F90.9 Attention-deficit hyperactivity disorder, unspecified type; F98.8 Other specified behavioral and emotional disorders with onset usually occurring in childhood and adolescence; G47.00 Insomnia, unspecified; J44.9 Chronic obstructive pulmonary disease, unspecified; Z79.899 Other long term (current) drug therapy
CPT/HCPCS: 80053; 80061; 80306; 82075; 83036; 84439; 84443; 85025; 90732; 93005; 93306; 99285

== ENCOUNTER → 2019-12-11 | Outpatient (CLI) | payer OTHER ==
--- NOTE | 2019-12-14 09:46 | MM ---
Reason for exam: screening (asymptomatic). Last mammogram was performed 1 year and 4 months ago. History: Patient is postmenopausal. Physical Findings: A clinical breast exam by your physician is recommended on an annual basis and results should be correlated with mammographic findings. MG Screening Mammo w CAD Bilateral CC and MLO view(s) were taken. Prior study comparison: August 22, 2018, bilateral MG screening mammo w CAD. August 10, 2015, bilateral MG screening mammo w CAD. The breast tissue is heterogeneously dense. This may lower the sensitivity of mammography. No suspicious abnormality. No significant changes when compared with prior studies. ASSESSMENT: Negative, BI-RAD 1 RECOMMENDATION: Routine screening mammogram of both breasts in 1 year.
== END | disposition home or self-care (01) ==
LOC: RADMAMWWP 11:33
PROVIDERS: ATTEND Family Medicine
DX: Z12.31 Encounter for screening mammogram for malignant neoplasm of breast (principal)
CPT/HCPCS: 77067

== ENCOUNTER → 2020-04-27 | Outpatient (CLI) | payer OTHER ==
--- NOTE | 2020-04-27 12:42 | MR ---
EXAMINATION TYPE: MR cervical spine wo con DATE OF EXAM: 04/27/2020 COMPARISON: None HISTORY: 54-year-old female Neck pain, headaches, didier arm numbness, hx of fall off ladder TECHNIQUE: Multiplanar, multisequence images of the cervical spine were acquired. FINDINGS: No craniocervical junction abnormality, predental space widening, or prevertebral soft tissue swellin g. Reversal of the normal cervical lordosis along the C6/C7 level where there is moderate degenerative d isc disease desiccated and narrowed disc. Additional moderate degenerative disc disease at C5-C6. Dis c osteophyte complex is are present at these levels as well as ligamentum flavum thickening. Some sc lerotic Modic type endplate change is noted. Multilevel facet and uncovertebral joint arthropathy. At C2-C3, no canal or foraminal stenosis. Mild facet arthropathy. At C3-C4, mild facet degenerative change. Mild left neuroforaminal stenosis. No spinal canal stenosis . At C4-C5, facet and uncovertebral joint arthropathy with mild bilateral neural foraminal narrowing. N o spinal canal stenosis. At C5-C6, broad-based disc osteophyte complex with contiguous uncovertebral joint hypertrophic facet arthropathy. And ligamentum flavum thickening. Changes result in moderate to severe bilateral neurofo raminal stenosis and mild spinal canal stenosis. At C6-C7, similar changes are present with moderate to severe left and moderate right neuroforaminal stenosis. Mild spinal canal stenosis. At C7-T1, bilateral facet arthropathy with mild bilateral neuroforaminal stenosis. No suspicious bone marrow replacement. Normal course, caliber, and signal intensity of the cervical spinal cord. No prevertebral or paravertebral soft tissue abnormality. IMPRESSION: 1. Moderate degenerative disc disease at C5-C6 and C6/C7 along with ligamentum flavum thickening resu lting in mild spinal canal stenoses at both of these levels. 2. Scattered facet and uncovertebral joint arthropathy. Changes result in moderate to severe bilatera l neuroforaminal stenosis at C5-C6 and moderate to severe left and moderate right at C6-C7.
== END | disposition home or self-care (01) ==
LOC: RADMRIMAIN 11:59
PROVIDERS: ATTEND Psychiatry & Neurology Neurology
DX: M50.322 Other cervical disc degeneration at C5-C6 level (principal); M48.02 Spinal stenosis, cervical region; M47.892 Other spondylosis, cervical region
CPT/HCPCS: 72141

== ENCOUNTER → 2020-05-19 | Outpatient (CLI) | payer OTHER ==
[2020-05-19 08:56] LABS: Basophils # (A) 0.1 k/uL (0-0.2); Basophils % (A) 1 %; Eosinophils # (A) 0.4 k/uL (0-0.7); Eosinophils % (A) 5 %; HCT 40.3 % (34.0-46.0); HGB 13.5 gm/dL (11.4-16.0); Lymphocytes # (A) 2.8 k/uL (1.0-4.8); Lymphocytes % (A) 31 %; MCH 29.6 pg (25.0-35.0); MCHC 33.5 g/dL (31.0-37.0); MCV 88.2 fL (80.0-100.0); Mean Platelet Volume 7.5; Monocytes # (A) 0.4 k/uL (0-1.0); Monocytes % (A) 5 %; Neutrophils # (A) 5.2 k/uL (1.3-7.7); Neutrophils % (A) 58 %; Platelet Count 226 k/uL (150-450); RBC 4.57 m/uL (3.80-5.40); RDW 12.9 % (11.5-15.5)
[2020-05-19 17:19] LABS: % Iron Saturation 12.7 (12.00-45.00); African American GFR (CKD) 97.6 (60.0-200.0); Albumin 4.2 g/dL (3.80-4.90); Albumin/Globulin Ratio 1.83 (1.60-3.17); Anion Gap 7.8 mmol/L (4.00-12.00); BUN/Creat Ratio 18.75 Ratio (12.00-20.00); Calcium 9.2 mg/dL (8.7-10.3); Carbon Dioxide 23.2 mmol/L (21.6-31.8); Chol/HDL Ratio 5.58; Globulin 2.3 g/dL (1.6-3.3); Non-African American GFR(CKD) 84.2 (60.0-200.0); Potassium 3.6 mmol/L (3.5-5.5); Total Bilirubin 0.2 mg/dL (0.3-1.2); Total Protein 6.5 g/dL (6.2-8.2)
== END | disposition home or self-care (01) ==
LOC: LABWHC1 07:59
PROVIDERS: ATTEND Family Medicine
DX: Z11.59 Encounter for screening for other viral diseases (principal); E78.5 Hyperlipidemia, unspecified; R53.83 Other fatigue
CPT/HCPCS: 36415; 80053; 80061; 82306; 82607; 83540; 83550; 83721; 84443; 85025; 86803

== ENCOUNTER 2020-10-20 20:49 | Emergency (ER) | payer OTHER ==
[2020-10-20 20:58] VITALS: RESP 18
[2020-10-20] MEDS ORDERED: ALPRAZolam 0.5 MG TAB PO STA (21:22)
[2020-10-20] MEDS ORDERED: ACETAMINOPHEN TAB 325 MG TAB PO STA (21:22)
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
--- NOTE | 2020-10-20 21:53 | XR ---
PROCEDURE: XR foot complete bilateral - total 6V DATE AND TIME: 10/20/2020 9:35 PM CLINICAL INDICATION: pain after injury;left MTP joint and right toe bruising TECHNIQUE: Department protocol COMPARISON: None FINDINGS: Right foot: 3 views were obtained. There is no fracture or malalignment. The soft tissues are unremar kable. Left foot: 3 views were obtained. There is no fracture or malalignment. The soft tissues are unremark able. IMPRESSION: No acute radiographic process.
[2020-10-20 22:13] LABS: Amphetamine Screen,Urine Detected (NotDetected); Barbiturate Screen,Urine Not Detected (NotDetected); Benzodiazepines Screen,Urine Detected (NotDetected); Cocaine Screen,Urine Not Detected (NotDetected); Methadone Screen, Urine Not Detected (NotDetected); Opiate Screen,Urine Not Detected (NotDetected); Oxycodone Screen, Urine Not Detected (NotDetected); Phencyclidine Screen,Urine Not Detected (NotDetected); Tricyclic Antidepressant,Urine Not Detected (NotDetected); Urn Cannabinoid Scrn Detected (NotDetected)
[2020-10-21 03:58] VITALS: BP 115/62; PULSE 72; TEMP 98.1
== END 2020-10-21 03:57 | disposition home or self-care (01) ==
LOC: EC 20:49
DX: F43.22 Adjustment disorder with anxiety (principal); S92.414A Nondisplaced fracture of proximal phalanx of right great toe, initial encounter for closed fracture; S92.515A Nondisplaced fracture of proximal phalanx of left lesser toe(s), initial encounter for closed fracture; S60.512A Abrasion of left hand, initial encounter; S60.511A Abrasion of right hand, initial encounter; F41.9 Anxiety disorder, unspecified; F31.9 Bipolar disorder, unspecified; F90.9 Attention-deficit hyperactivity disorder, unspecified type; F20.9 Schizophrenia, unspecified; F17.200 Nicotine dependence, unspecified, uncomplicated; Z79.899 Other long term (current) drug therapy; X83.8XXA Intentional self-harm by other specified means, initial encounter
CPT/HCPCS: 80306; 82075; 99284

== ENCOUNTER 2020-12-20 11:27 | Emergency (ER) | payer OTHER ==
[2020-12-20 11:32] VITALS: RESP 18
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
[2020-12-20 13:37] LABS: Appearance,Urine Cloudy (Clear); Bacteria,Urine Rare /hpf; Bilirubin,Urine 1+ (Negative); Blood,Urine Moderate (Negative); Color,Urine Yellow; Glucose,Urine (UA) Negative (Negative); Hyaline Casts,Urine 4 /lpf (0-2); Ketones,Urine 2+ (Negative); Leukocyte Esterase,Urine Moderate (Negative); Mucus,Urine Occasional /hpf; Nitrite,Urine Negative (Negative); Protein,Urine 1+ (Negative); RBC,Urine 21 /hpf (0-5); Specific Gravity,Urine 1.033 (1.001-1.035); Squamous Epithelial Cell,Urine 8 /hpf (0-4); WBC,Urine 16 /hpf (0-5)
[2020-12-20 13:46] LABS: Amphetamine Screen,Urine Detected (NotDetected); Benzodiazepines Screen,Urine Detected (NotDetected); Cocaine Screen,Urine Not Detected (NotDetected); Opiate Screen,Urine Not Detected (NotDetected); Phencyclidine Screen,Urine Not Detected (NotDetected); Tricyclic Antidepressant,Urine Not Detected (NotDetected); Urn Cannabinoid Scrn Detected (NotDetected)
[2020-12-20 13:47] LABS: Barbiturate Screen,Urine Not Detected (NotDetected); Methadone Screen, Urine Not Detected (NotDetected); Oxycodone Screen, Urine Detected (NotDetected)
[2020-12-20 15:15] VITALS: BP 107/66; PULSE 85; TEMP 98
== END 2020-12-20 15:15 | disposition home or self-care (01) ==
LOC: EC 11:27
DX: F41.9 Anxiety disorder, unspecified (principal); F15.10 Other stimulant abuse, uncomplicated; J44.9 Chronic obstructive pulmonary disease, unspecified; F90.9 Attention-deficit hyperactivity disorder, unspecified type; F31.9 Bipolar disorder, unspecified; F20.9 Schizophrenia, unspecified; F17.200 Nicotine dependence, unspecified, uncomplicated; Z79.899 Other long term (current) drug therapy
CPT/HCPCS: 80306; 81001; 82075; 99284

== ENCOUNTER 2021-01-12 03:18 | Emergency (ER) | payer OTHER ==
--- NOTE | 2021-01-12 04:09 | CT ---
EXAM: CT Head Without Intravenous Contrast CLINICAL HISTORY: ITS.REASON CT Reason: fall injury TECHNIQUE: Axial computed tomography images of the head/brain without intravenous contrast. CTDI is 45.2 mGy and DLP is 1033 mGy-cm. This CT exam was performed using one or more of the following dose reduction techniques: automated exposure control, adjustment of the mA and/or kV according to patient size, and/or use of iterative reconstruction technique. COMPARISON: No relevant prior studies available. FINDINGS: Brain: Unremarkable. No hemorrhage. No significant white matter disease. No edema. Ventricles: Unremarkable. No ventriculomegaly. Basilar cisterns are widely patent. Bones/joints: Unremarkable. No acute fracture. Soft tissues: Unremarkable. Sinuses: Unremarkable as visualized. No acute sinusitis. Mastoid air cells: Unremarkable as visualized. No mastoid effusion. IMPRESSION: No acute intracranial process. EXAM: CT Cervical Spine Without Intravenous Contrast CLINICAL HISTORY: ITS.REASON CT Reason: fall injury TECHNIQUE: Axial computed tomography images of the cervical spine without intravenous contrast. CTDI is 11.07 mGy and DLP is 276.1 mGy-cm. This CT exam was performed using one or more of the following dose reduction techniques: automated exposure control, adjustment of the mA and/or kV according to patient size, and/or use of iterative reconstruction technique. COMPARISON: MRI Cervical spine dated 04/27/2020 FINDINGS: Vertebrae: No acute fractures. 2 mm anterolisthesis of C4 and C5. Discs/spinal canal/neural foramina: Degenerative disc disease, most prominent at C5/C6 and C6/C7 with disc space narrowing and anterior osteophytes. No significant spinal canal narrowing. Severe bilateral foraminal narrowing at C5/C6 and C6/C7. Soft tissues: Unremarkable. No prevertebral edema. Visualized portions lung apices are clear. IMPRESSION: 1. No CT evidence of acute traumatic injury to the cervical spine. 2. Degenerative disc disease of the lower cervical spine resulting in no significant spinal narrowing. Severe bilateral foraminal narrowing at C5/C6 and C6/C7.
--- NOTE | 2021-01-12 04:14 | XR ---
EXAM: XR Left Elbow Complete, 3 or More Views CLINICAL HISTORY: ITS.REASON XR Reason: fall injury TECHNIQUE: Frontal, lateral and oblique views of the left elbow. COMPARISON: No relevant prior studies available. FINDINGS: Bones/joints: Unremarkable. No acute fracture. No dislocation. Soft tissues: Soft tissue swelling overlying the olecranon. No elbow effusion. IMPRESSION: 1. No acute fracture or dislocation of the left elbow. 2. Soft tissue swelling overlying the olecranon. No left elbow effusion.
--- NOTE | 2021-01-12 04:15 | XR ---
EXAM: XR Thoracic Spine, 3 Views CLINICAL HISTORY: ITS.REASON XR Reason: fall injury TECHNIQUE: Frontal, lateral and swimmer's views of the thoracic spine. COMPARISON: No relevant prior studies available. FINDINGS: Vertebrae: Unremarkable. No acute fracture. Normal alignment. Disc spaces: No acute findings. No significant narrowing. Soft tissues: Unremarkable. IMPRESSION: Normal thoracic spine x-rays.
--- NOTE | 2021-01-12 04:17 | XR ---
EXAM: XR Lumbosacral Spine, 2 or 3 Views CLINICAL HISTORY: ITS.REASON XR Reason: fall injury TECHNIQUE: Frontal and lateral views of the lumbar spine and sacrum. COMPARISON: MRI Lumbar spine dated 09/12/2015 FINDINGS: Vertebrae: Unremarkable. No acute fracture. Normal alignment. Sacrum/coccyx: Unremarkable as visualized. No acute fracture. Disc spaces: No acute findings. No significant narrowing. Soft tissues: Unremarkable. IMPRESSION: No acute fracture or spondylolisthesis of lumbar spine. No significant disc height loss or spinal canal narrowing.
[2021-01-12] MEDS ORDERED: IBUPROFEN 600 MG TAB PO STA (04:27)
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
[2021-01-12 05:38] VITALS: BP 125/90; PULSE 72; RESP 20; TEMP 97.6
== END 2021-01-12 05:00 | disposition home or self-care (01) ==
LOC: EC 03:18
DX: S50.02XA Contusion of left elbow, initial encounter (principal); S09.90XA Unspecified injury of head, initial encounter; M54.5 Low back pain; M54.2 Cervicalgia; J44.9 Chronic obstructive pulmonary disease, unspecified; F17.200 Nicotine dependence, unspecified, uncomplicated; F32.9 Major depressive disorder, single episode, unspecified; F41.9 Anxiety disorder, unspecified; Z79.51 Long term (current) use of inhaled steroids; W06.XXXA Fall from bed, initial encounter
CPT/HCPCS: 70450; 72072; 72100; 72125; 99284

== ENCOUNTER 2021-08-11 08:50 | Inpatient (IN) | payer MEDICAID, OTHER ==
[2021-08-11] MEDS ORDERED: LORazepam 2 MG/ML INJ IM STA ×3 (09:09→18:15)
[2021-08-11 09:39] LABS: Glucose,Whole Blood 123 mg/dL (75-99)
[2021-08-11 09:47] LABS: Basophils # (A) 0.1 k/uL (0-0.2); Basophils % (A) 0 %; Eosinophils # (A) 0.1 k/uL (0-0.7); Eosinophils % (A) 1 %; HCT 45.2 % (34.0-46.0); HGB 15.8 gm/dL (11.4-16.0); Lymphocytes # (A) 2.2 k/uL (1.0-4.8); Lymphocytes % (A) 12 %; MCH 29.3 pg (25.0-35.0); MCV 83.7 fL (80.0-100.0); Mean Platelet Volume 8.1; Monocytes # (A) 0.9 k/uL (0-1.0); Monocytes % (A) 5 %; Neutrophils # (A) 14.7 k/uL (1.3-7.7); Neutrophils % (A) 82 %; Platelet Count 264 k/uL (150-450); RBC 5.39 m/uL (3.80-5.40); RDW 13.4 % (11.5-15.5)
[2021-08-11 10:00] LABS: Chloride 102 mmol/L (98-107)
[2021-08-11 10:03] LABS: ALT 29 U/L (4-34); AST 48 U/L (14-36); Acetaminophen <10.0 ug/mL; African American GFR (CKD) 69 (>60 ml/min/1.73 sqM); Albumin 5.2 g/dL (3.5-5.0); Alcohol <10 mg/dL; Alkaline Phosphatase 93 U/L (38-126); Anion Gap 16 mmol/L; Blood Urea Nitrogen 18 mg/dL (7-17); Calcium 10.8 mg/dL (8.4-10.2); Carbon Dioxide 16 mmol/L (22-30); Glucose 124 mg/dL (74-99); Non-African American GFR(CKD) 60 (>60 ml/min/1.73 sqM); Sodium 134 mmol/L (137-145); Total Protein 8.6 g/dL (6.3-8.2)
[2021-08-11 10:11] LABS: Amorphous Sediment,Urine Rare /hpf; Appearance,Urine Cloudy (Clear); Bacteria,Urine Moderate /hpf; Bilirubin,Urine Negative (Negative); Blood,Urine Moderate (Negative); Calcium Oxalate Crystals,Urine Rare /hpf; Color,Urine Yellow; Glucose,Urine (UA) Negative (Negative); Granular Casts,Urine 25 /lpf (0); Hyaline Casts,Urine 11 /lpf (0-2); Ketones,Urine 2+ (Negative); Leukocyte Esterase,Urine Negative (Negative); Mucus,Urine Many /hpf; Nitrite,Urine Positive (Negative); PH, Urine 5.5 (5.0-8.0); Protein,Urine 2+ (Negative); RBC,Urine 2 /hpf (0-5); Specific Gravity,Urine 1.025 (1.001-1.035); Squamous Epithelial Cell,Urine 9 /hpf (0-4); Urobilinogen,Urine <2.0 mg/dL (<2.0); WBC,Urine 7 /hpf (0-5)
[2021-08-11 10:31] LABS: Amphetamine Screen,Urine Detected (NotDetected); Barbiturate Screen,Urine Not Detected (NotDetected); Benzodiazepines Screen,Urine Detected (NotDetected); Cocaine Screen,Urine Not Detected (NotDetected); Methadone Screen, Urine Not Detected (NotDetected); Opiate Screen,Urine Not Detected (NotDetected); Oxycodone Screen, Urine Not Detected (NotDetected); Phencyclidine Screen,Urine Not Detected (NotDetected); Tricyclic Antidepressant,Urine Not Detected (NotDetected); Urn Cannabinoid Scrn Detected (NotDetected)
[2021-08-11] MEDS ORDERED: SODIUM CHLORIDE 0.9% 1,000 ML IV ONE (10:37)
--- NOTE | 2021-08-11 10:37 | XR ---
EXAMINATION TYPE: XR chest 2V DATE OF EXAM: 08/11/2021 COMPARISON: NONE HISTORY: Cough. TECHNIQUE: Frontal and lateral views of the chest are obtained. FINDINGS: There is reticular interstitial prominence bilaterally. Some bilateral central peribronch ial cuffing. No suspicious peripheral focal airspace opacity, pleural effusion, or pneumothorax seen. The cardiac silhouette size is within normal limits. The osseous structures are intact. IMPRESSION: Correlate for possible acute or chronic bronchitis and/or bronchiolitis. No acute focal pneumonia.
[2021-08-11] MEDS ORDERED: cefTRIAXone IN SWFI 1,000 MG/10 ML SYRINGE IVP STA (10:50)
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
[2021-08-11] MEDS ORDERED: MAGNESIUM HYDROXIDE 2,400 MG/10 ML CUP PO PRN (18:19)
[2021-08-11] MEDS ORDERED: MAG HYDROX/AL HYDROX/SIMETH 30 ML CUP PO PRN (18:19)
[2021-08-11] MEDS ORDERED: ACETAMINOPHEN TAB 325 MG TAB PO PRN (18:19)
[2021-08-11] MEDS ORDERED: LORazepam 2 MG/ML INJ IM PRN (18:25)
[2021-08-11] MEDS ORDERED: HALOPERIDOL LACTATE 5 MG/ML 1 ML VIAL IM PRN (18:26)
[2021-08-11] MEDS ORDERED: haloperidoL 5 MG TAB PO PRN (18:27)
[2021-08-11] MEDS: traZODone HCL 100 MG TAB PO SCH (20:36)
[2021-08-11] MEDS: SULFAMETHOX-TMP 800-160MG 1 EACH TAB PO SCH (20:36)
[2021-08-11] MEDS: SERTRALINE 100 MG TAB PO SCH (20:37)
[2021-08-11] MEDS: lamoTRIgine 100 MG TAB PO SCH (20:37)
[2021-08-11] MEDS: NON FORMULARY DRUG (Dextroamphetamine/Amphetamine [Adderall] 20 MG Tablet) PO SCH (20:39)
[2021-08-12] MEDS: SYMBICORT 80-4.5 MCG INHALER INHALATION SCH ×2 (00:02→09:20)
[2021-08-12 07:58] VITALS: BMI 27.8
[2021-08-12] MEDS: SULFAMETHOX-TMP 800-160MG 1 EACH TAB PO SCH ×2 (08:28→20:46)
[2021-08-12] MEDS: lamoTRIgine 100 MG TAB PO SCH ×2 (08:28→20:45)
[2021-08-12] MEDS: NICOTINE 14MG/24HR PATCH TRANSDERM SCH (08:28)
[2021-08-12] MEDS: NON FORMULARY DRUG (Dextroamphetamine/Amphetamine [Adderall] 20 MG Tablet) PO SCH ×2 (08:31→21:40)
[2021-08-12] MEDS: SYMBICORT 80-4.5 MCG INHALER (MHU) INHALATION SCH ×3 (08:55→20:47)
[2021-08-12 12:12] LABS: Basophils # (A) 0.1 k/uL (0-0.2); Basophils % (A) 1 %; Eosinophils # (A) 0.1 k/uL (0-0.7); Eosinophils % (A) 1 %; HCT 42.7 % (34.0-46.0); HGB 14.9 gm/dL (11.4-16.0); Lymphocytes # (A) 1.6 k/uL (1.0-4.8); Lymphocytes % (A) 17 %; MCH 29.2 pg (25.0-35.0); MCHC 34.9 g/dL (31.0-37.0); MCV 83.7 fL (80.0-100.0); Mean Platelet Volume 8.1; Monocytes # (A) 0.4 k/uL (0-1.0); Monocytes % (A) 4 %; Neutrophils % (A) 75 %; Platelet Count 237 k/uL (150-450); RDW 13.7 % (11.5-15.5); WBC 9.2 k/uL (3.8-10.6)
[2021-08-12 12:45] LABS: ALT 48 U/L (4-34); AST 76 U/L (14-36); African American GFR (CKD) >90 (>60 ml/min/1.73 sqM); Albumin 4.5 g/dL (3.5-5.0); Alkaline Phosphatase 74 U/L (38-126); Anion Gap 14 mmol/L; Blood Urea Nitrogen 17 mg/dL (7-17); Calcium 9.7 mg/dL (8.4-10.2); Carbon Dioxide 18 mmol/L (22-30); Chloride 105 mmol/L (98-107); Glucose 118 mg/dL (74-99); Non-African American GFR(CKD) 84 (>60 ml/min/1.73 sqM); Potassium 3.6 mmol/L (3.5-5.1); Sodium 137 mmol/L (137-145); Total Bilirubin 0.5 mg/dL (0.2-1.3); Total Protein 7.8 g/dL (6.3-8.2)
[2021-08-12] MEDS: LORazepam 1 MG TAB PO PRN ×2 (13:32→22:30)
[2021-08-12] MEDS: SERTRALINE 100 MG TAB PO SCH (20:46)
[2021-08-12] MEDS: traZODone HCL 100 MG TAB PO SCH (20:46)
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
[2021-08-13 07:02] VITALS: RESP 18
[2021-08-13] MEDS: SYMBICORT 80-4.5 MCG INHALER (MHU) INHALATION SCH ×2 (08:31→19:02)
[2021-08-13] MEDS: NICOTINE 14MG/24HR PATCH TRANSDERM SCH (08:31)
[2021-08-13] MEDS: lamoTRIgine 100 MG TAB PO SCH ×2 (08:32→20:12)
[2021-08-13] MEDS: SULFAMETHOX-TMP 800-160MG 1 EACH TAB PO SCH ×2 (08:32→20:12)
[2021-08-13] MEDS: NON FORMULARY DRUG (Dextroamphetamine/Amphetamine [Adderall] 20 MG Tablet) PO SCH ×2 (08:32→20:09)
[2021-08-13] MEDS: LORazepam 1 MG TAB PO PRN ×2 (08:33→19:02)
[2021-08-13 08:48] LABS: Chol/HDL Ratio 3.85 Ratio; LDL Cholesterol,Calculated 146.9 mg/dL (0.0-131.0)
[2021-08-13] MEDS: ALBUTEROL HFA INHALER INHALATION PRN (20:11)
[2021-08-13] MEDS: SERTRALINE 100 MG TAB PO SCH (20:12)
[2021-08-13] MEDS: traZODone HCL 100 MG TAB PO SCH (20:12)
--- NOTE | 2021-08-13 22:39 | P.PN ---
Progress Note - Text Progress Note Date: 08/13/21 Subjective: Patient was seen today as a cross coverage for Dr. Schwarz. The patient was evaluated, chart reviewed, case discussed with the treatment team. Patient reports good sleep last night, and appetite was reported as " great". Patient has been going to groups and other unit activities. The patient is compliant with her medications and denies any adverse reactions. Patient reports feeling stable emotionally and he denies any symptoms of depression, anxiety, or mood s wings. She denies any hallucinations, paranoid ideation, delusions, or manic symptoms. Patient continues to express regretting using meth amphetamine before she came and requested discharge. She was educated to speak to her primary psychiatrist about discharge plan. []The patient denies any manic symptoms including sustained period of time with elevated or irritable mood, impulsive or irrational behavior, inflated self- esteem, or absence need to sleep due to increases goal-directed activities. The patient denies any auditory or visual hallucinations. Also the patient denies any paranoid ideation. Review of other systems: Patient denies any physical symptoms besides what has been mentioned above. No breathing problems, no chest pain reported today. Objective: Vitals has been reviewed. Mental status examination; Appearance: Appears stated age, fairly groomed, average body built, and no specific features. Gait/ posture: Steady gait, normal arm swinging, no abnormal movements, with relaxed posture. Attitude and Behavior: engaged, fair eye contact during course of interview. Motor Activity: normal psychomotor activity. Speech: spontaneous, normal rate, rhythm, and articulation. normal volume. not pressured. Language: Articulating, naming objects and repeat phrases. Mood: "great" Affect: normal, reactive. Thought process: Linear, goal directed. Thought content: Denies delusions, Denies suicidal thoughts, Denies homicidal thoughts, Denies intentions, or plans. Perception: Denies A/V hallucinations Alertness: No impairment. Concentration: impaired Orientation: Oriented to time, person, place and situation Insight regarding psychiatric condition: fair Judgment regarding daily activities and social situation: fair Impulse control: fair Assessment: Substance-induced mood disorder. Rule out meth amphetamine use disorder. Bipolar disorder by history. ADHD by history. Continue use disorder by history. Cannabis use disorder. Nicotine use disorder Plan: Continue inpatient level of care due to patient needs further monitoring and stabilization. Precautions: Continue 15 minutes check for safety. Consider medical consultation if any acute medical issues arise. Provide the patient individual, group therapy, substance use disorder counseling to give better insight and learn coping skills. Medications: Continue Zoloft 100 mg at bedtime for depression and anxiety, Lamictal 100 mg in the morning and 150 mg at bedtime for mood stabilization, trazodone 100 mg at bedtime for depression and to help with insomnia. Nicotine replacement treatment. Continue when necessary psychiatric medications including Ativan for anxiety. Continue non-psychiatric medication as per medical team recommendations. Discharge patient to OUTPATIENT services upon a stabilization
[2021-08-14] MEDS: ALBUTEROL HFA INHALER INHALATION PRN ×2 (05:27→08:39)
[2021-08-14 05:29] VITALS: PULSE 89; TEMP 97.7
[2021-08-14 06:31] VITALS: BP 188/57
[2021-08-14] MEDS: SYMBICORT 80-4.5 MCG INHALER (MHU) INHALATION SCH (08:39)
[2021-08-14] MEDS: NICOTINE 14MG/24HR PATCH TRANSDERM SCH (08:41)
[2021-08-14] MEDS: lamoTRIgine 100 MG TAB PO SCH ×2 (08:44)
[2021-08-14] MEDS: LORazepam 1 MG TAB PO PRN (08:44)
[2021-08-14] MEDS: NON FORMULARY DRUG (Dextroamphetamine/Amphetamine [Adderall] 20 MG Tablet) PO SCH (08:44)
[2021-08-14] MEDS: SULFAMETHOX-TMP 800-160MG 1 EACH TAB PO SCH (08:46)
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
== END 2021-08-14 13:00 | disposition home or self-care (01) | DRG 897 ==
LOC: EC 08:50 → 3MHU 18:11
PROVIDERS: ADMIT Psychiatry & Neurology Psychiatry; ATTEND Psychiatry & Neurology Psychiatry
DX: F19.94 Other psychoactive substance use, unspecified with psychoactive substance-induced mood disorder (principal); R45.851 Suicidal ideations; F15.10 Other stimulant abuse, uncomplicated; Z71.51 Drug abuse counseling and surveillance of drug abuser; F17.210 Nicotine dependence, cigarettes, uncomplicated; F20.9 Schizophrenia, unspecified; F31.9 Bipolar disorder, unspecified; F41.9 Anxiety disorder, unspecified; F14.10 Cocaine abuse, uncomplicated; F12.10 Cannabis abuse, uncomplicated; E86.0 Dehydration; G47.00 Insomnia, unspecified; J44.9 Chronic obstructive pulmonary disease, unspecified; Z79.51 Long term (current) use of inhaled steroids; Z79.899 Other long term (current) drug therapy; Z82.5 Family history of asthma and other chronic lower respiratory diseases; Z98.890 Other specified postprocedural states; Z20.822 Contact with and (suspected) exposure to COVID-19
CPT/HCPCS: 36415; 71046; 80053; 80061; 80143; 80306; 80320; 81001; 82075; 83036; 84443; 85025; 87635; 93005; 96361; 96372; 96374; 99285

== ENCOUNTER 2022-01-03 14:43 | Inpatient (IN) | payer MEDICAID, OTHER ==
[2022-01-03 17:35] LABS: Cocaine Screen,Urine Detected (NotDetected); Methadone Screen, Urine Not Detected (NotDetected); Opiate Screen,Urine Not Detected (NotDetected); Phencyclidine Screen,Urine Not Detected (NotDetected); Tricyclic Antidepressant,Urine Not Detected (NotDetected); Urn Cannabinoid Scrn Detected (NotDetected)
[2022-01-03 17:36] LABS: Amphetamine Screen,Urine Detected (NotDetected); Barbiturate Screen,Urine Not Detected (NotDetected); Benzodiazepines Screen,Urine Detected (NotDetected); Oxycodone Screen, Urine Not Detected (NotDetected)
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
[2022-01-03] MEDS ORDERED: HALOPERIDOL LACTATE 5 MG/ML 1 ML VIAL IM PRN (22:27)
[2022-01-03] MEDS ORDERED: MAG HYDROX/AL HYDROX/SIMETH 30 ML CUP PO PRN (22:27)
[2022-01-03] MEDS ORDERED: LORazepam 1 MG TAB PO PRN (22:27)
[2022-01-03] MEDS ORDERED: MAGNESIUM HYDROXIDE 2,400 MG/10 ML CUP PO PRN (22:27)
[2022-01-03] MEDS ORDERED: ACETAMINOPHEN TAB 325 MG TAB PO PRN (22:27)
[2022-01-03] MEDS ORDERED: LORazepam 2 MG/ML INJ IM PRN (22:31)
[2022-01-03] MEDS ORDERED: haloperidoL 5 MG TAB PO PRN (22:32)
[2022-01-03] MEDS ORDERED: ALBUTEROL INHALER 60 PUFF/8 GM INHALER (MHU) INHALATION PRN (22:32)
[2022-01-03] MEDS ORDERED: oxyCODONE-APAP 5-325MG 1 EACH TAB PO PRN (22:39)
[2022-01-03] MEDS: lamoTRIgine 100 MG TAB PO SCH (23:01)
[2022-01-03] MEDS: traZODone HCL 100 MG TAB PO SCH (23:01)
[2022-01-04 00:30] LABS: Amorphous Sediment,Urine Moderate /hpf; Appearance,Urine Turbid (Clear); Bacteria,Urine Moderate /hpf; Bilirubin,Urine Negative (Negative); Blood,Urine Moderate (Negative); Color,Urine Dark Brown; Glucose,Urine (UA) Negative (Negative); Hyaline Casts,Urine 18 /lpf (0-2); Ketones,Urine Negative (Negative); Leukocyte Esterase,Urine Small (Negative); Mucus,Urine Many /hpf; Nitrite,Urine Positive (Negative); PH, Urine 5.5 (5.0-8.0); Protein,Urine 2+ (Negative); Specific Gravity,Urine 1.034 (1.001-1.035); Squamous Epithelial Cell,Urine 8 /hpf (0-4); Urobilinogen,Urine <2.0 mg/dL (<2.0)
[2022-01-04] MEDS: NICOTINE 14MG/24HR PATCH TRANSDERM SCH ×2 (00:40→07:59)
[2022-01-04] MEDS ORDERED: LOPERAMIDE 2 MG CAP PO PRN (00:46)
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
[2022-01-04 06:52] VITALS: BP 117/56; PULSE 70; RESP 16; TEMP 97
[2022-01-04] MEDS: lamoTRIgine 100 MG TAB PO SCH ×2 (07:59→19:59)
[2022-01-04] MEDS: SERTRALINE 100 MG TAB PO SCH (07:59)
[2022-01-04] MEDS ORDERED: IPRATROPIUM 0.5 MG/2.5 ML NEBU INHALATION SCH (08:00)
[2022-01-04] MEDS: SYMBICORT 80-4.5 MCG INHALER (MHU) INHALATION SCH ×2 (08:00→19:57)
[2022-01-04] MEDS: TIOTROPIUM 2.5 MCG INHALER (MHU) INHALATION SCH (08:01)
[2022-01-04 08:04] LABS: Basophils # (A) 0.1 k/uL (0-0.2); Basophils % (A) 1 %; Eosinophils # (A) 0.2 k/uL (0-0.7); Eosinophils % (A) 2 %; HCT 47.6 % (34.0-46.0); HGB 16.6 gm/dL (11.4-16.0); Lymphocytes # (A) 3.5 k/uL (1.0-4.8); Lymphocytes % (A) 33 %; MCH 30.6 pg (25.0-35.0); MCHC 34.9 g/dL (31.0-37.0); MCV 87.6 fL (80.0-100.0); Mean Platelet Volume 7.9; Monocytes # (A) 0.6 k/uL (0-1.0); Monocytes % (A) 5 %; Neutrophils # (A) 6.2 k/uL (1.3-7.7); Neutrophils % (A) 58 %; Platelet Count 289 k/uL (150-450); RBC 5.44 m/uL (3.80-5.40); RDW 13.3 % (11.5-15.5); WBC 10.7 k/uL (3.8-10.6)
[2022-01-04 08:14] LABS: ALT 19 U/L (4-34); AST 20 U/L (14-36); African American GFR (CKD) 81 (>60 ml/min/1.73 sqM); Albumin 4.8 g/dL (3.5-5.0); Alkaline Phosphatase 76 U/L (38-126); Anion Gap 10 mmol/L; Blood Urea Nitrogen 19 mg/dL (7-17); Calcium 10.4 mg/dL (8.4-10.2); Carbon Dioxide 20 mmol/L (22-30); Chloride 110 mmol/L (98-107); Glucose 146 mg/dL (74-99); Non-African American GFR(CKD) 70 (>60 ml/min/1.73 sqM); Potassium 4.1 mmol/L (3.5-5.1); Sodium 140 mmol/L (137-145); Total Bilirubin 0.7 mg/dL (0.2-1.3); Total Protein 8.4 g/dL (6.3-8.2)
[2022-01-04] MEDS ORDERED: hydrOXYzine HCL 50 MG/ML 1 ML VIAL IM PRN (12:05)
[2022-01-04] MEDS ORDERED: hydrOXYzine pamoate 25 MG CAP PO PRN (12:05)
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
[2022-01-04 16:09] LABS: Chol/HDL Ratio 5.27 Ratio
[2022-01-04] MEDS: traZODone HCL 100 MG TAB PO SCH (19:59)
[2022-01-04] MEDS ORDERED: MIRTAZAPINE 15 MG TAB PO SCH (21:00)
[2022-01-05] MEDS: NICOTINE 14MG/24HR PATCH TRANSDERM SCH (09:18)
[2022-01-05] MEDS: SERTRALINE 100 MG TAB PO SCH (09:19)
[2022-01-05] MEDS: lamoTRIgine 100 MG TAB PO SCH (09:19)
[2022-01-05] MEDS: SYMBICORT 80-4.5 MCG INHALER (MHU) INHALATION SCH (09:20)
[2022-01-05] MEDS: TIOTROPIUM 2.5 MCG INHALER (MHU) INHALATION SCH (09:20)
--- NOTE | 2022-01-05 11:53 | P.DS ---
Providers Date of admission: 01/03/22 22:05 Expected date of discharge: 01/05/22 Attending physician: Les Schwarz MD Consults: 01/03/22 22:27 Consult Physician Routine Consulting Provider: Carla Kilgore Consult Reason/Comments: history and physical/medical management Do you want consulting provider notified?: Yes Primary care physician: Karol Billingsley MD - Discharge Diagnosis(es) (1) Bipolar depression Current Visit: Yes Status: Acute Priority: High (2) Crack cocaine use Current Visit: Yes Status: Chronic Priority: Medium (3) Nicotine dependence Current Visit: Yes Status: Chronic Priority: Medium Hospital Course: Admission HPI: Patient is a single, unemployed, 56-year-old female with significant history of polysubstance abuse presented to the hospital the chief complaint of worsening depression in the context of substance abuse. Patient presented to the hospital on 01/03/2022, brought in by her significant other for depression and suicidal ideation. As previous report, the patient presented with disheveled appearance and was tearful during the initial psychiatric evaluation. The patient reported that she has not been eating or sleeping for the past week. She stated to the EPS nurse that she was on a recent drug binge. She states that that she was using crack cocaine with her last use being the night before her presentation to the emergency department. On evaluation on the psychiatric unit, the patient reports that for the past week she has been feeling increasingly useless, helpless, tearful, and endorsing some suicidal ideation. She actively denies any suicidal intention or plan and states that she has a generalized feeling of not wanting to be around anymore. She denies any prior attempts at suicide. She reports no homicidal ideation, intention, and/or plan. The patient reports that she relapsed into drug use over the past month. She states that she recently saw multiple family members and noticed the look of discussed from their faces and therefore has been feeling increasingly guilty about her use and wishes to stop using any of her drugs. The patient has been using all substances but her drug of choice is crack cocaine. The patient admits that she has been diverting prescribed medic ations of Adderall, Xanax, and narcotics, in order to obtain funds in order to fuel her crack cocaine use. The patient states that she wants to quit it all and stop living this lifestyle. In regards to other mood symptoms, the patient is denying any significant history of manic-like symptoms outside the context of drug abuse. Furthermore, the patient denies any history of auditory or visual hallucinations outside the use of drugs. She is open to going to inpatient rehabilitation. Patient states that she has been previously diagnosed with bipolar disorder, ADHD, depression, anxiety. The patient has trialed numerous psychiatric medications including Prozac, Paxil, Zoloft, Wellbutrin, trazodone, Lamictal, Adderall, BuSpar, and Xanax. The patient has had multiple psychiatric hospitalizations with the last time being on this unit this past August. The patient follows with [facility] in the outpatient setting. Patient denies any history of suicide attempts in the past. Hospital course: Upon admission to the unit patient was initially very tearful and endorsing a significant improvement amount of guilt in the context of heavy substance use. Patient was however directable and agreeable to commence treatment. Patient got along well with other patients on the unit and followed unit protocol. Patient was compliant with the medications and denied any side effects throughout hospital course. Patient was started on her home medications of Trazodone, Lamictal, and Zoloft. Remeron was added to her regimen to address depression and insomnia. The patient attended groups and was involved in both individual and milieu therapies. The patient was future oriented and desired to go to inpatient substance abuse rehabilitation. She did not express any desire to harm herself or others. She reported future orientation. As the patient no longer met criteria for inpatient psychiatric hospitalization, she was subsequently discharged. She was set up with appropriate aftercare appointments as she awaited placement for rehabilitation for her substance abuse. The patient was counseled at length on the importance of medication adherence and appropriate follow-up. Furthermore, this provider spent significant amount of time providing the patient with motivational interviewing and supportive psychotherapy in regards to her substance abuse. The patient was counseled at length on avoiding all substances including alcohol, marijuana, and cocaine. Prior to discharge, family meeting will be arranged by hospital social worker since he questions and ensure safety Mental status exam: General Appearance: Patient appears to be stated age is alert, pleasant, and cooperative. Patient is in no acute distress and has fair hygiene and grooming Behavior: Patient is calmly seated without any agitated behavior. Speech: Patient's speech is fluent and nonpressured. Mood/Affect: Patient reports their mood is "very sad and guilty", affect is congruent and euthymic and tearful. Suicidality/Homicidality: Patient denies having any suicidal or homicidal ideation intent or plan. Perceptions: Patient denies any auditory or visual hallucinations. Though content/process: There is no evidence of any delusional thought content and thought process is linear and goal-directed. Patient is future oriented. Memory and concentration: AOX3, grossly intact for the purposes of this session. Can spell "WORLD" backwards correctly. Judgment and insight: Improved with guarded prognosis Vital Signs Temp 97 F L 01/04/22 06:41 Pulse 70 01/04/22 06:41 Resp 16 01/04/22 06:41 BP 117/56 01/04/22 06:41 Pulse Ox 98 01/03/22 22:19 Laboratory Results WBC 10.7 k/uL (3.8-10.6) H 01/04/22 07:23 RBC 5.44 m/uL (3.80-5.40) H 01/04/22 07:23 Hgb 16.6 gm/dL (11.4-16.0) H 01/04/22 07:23 Hct 47.6 % (34.0-46.0) H 01/04/22 07:23 MCV 87.6 fL (80.0-100.0) 01/04/22 07:23 MCH 30.6 pg (25.0-35.0) 01/04/22 07:23 MCHC 34.9 g/dL (31.0-37.0) 01/04/22 07:23 RDW 13.3 % (11.5-15.5) 01/04/22 07:23 Plt Count 289 k/uL (150-450) 01/04/22 07:23 MPV 7.9 01/04/22 07:23 Neutrophils % 58 % 01/04/22 07:23 Lymphocytes % 33 % 01/04/22 07:23 Monocytes % 5 % 01/04/22 07:23 Eosinophils % 2 % 01/04/22 07:23 Basophils % 1 % 01/04/22 07:23 Neutrophils # 6.2 k/uL (1.3-7.7) 01/04/22 07:23 Lymphocytes # 3.5 k/uL (1.0-4.8) 01/04/22 07:23 Monocytes # 0.6 k/uL (0-1.0) 01/04/22 07:23 Eosinophils # 0.2 k/uL (0-0.7) 01/04/22 07:23 Basophils # 0.1 k/uL (0-0.2) 01/04/22 07:23 Sodium 140 mmol/L (137-145) 01/04/22 07:23 Potassium 4.1 mmol/L (3.5-5.1) 01/04/22 07:23 Chloride 110 mmol/L (98-107) H 01/04/22 07:23 Carbon Dioxide 20 mmol/L (22-30) L 01/04/22 07:23 Anion Gap 10 mmol/L 01/04/22 07:23 BUN 19 mg/dL (7-17) H 01/04/22 07:23 Creatinine 0.93 mg/dL (0.52-1.04) 01/04/22 07:23 Est GFR (CKD-EPI)AfAm 81 (>60 ml/min/1.73 sqM) 01/04/22 07:23 Est GFR (CKD-EPI)NonAf 70 (>60 ml/min/1.73 sqM) 01/04/22 07:23 Glucose 146 mg/dL (74-99) H 01/04/22 07:[address] Glu mg/dL 109 01/04/22 07:23 Hemoglobin A1c 5.4 % (0.0-6.0) 01/04/22 07:23 Calcium 10.4 mg/dL (8.4-10.2) H 01/04/22 07:23 Total Bilirubin 0.7 mg/dL (0.2-1.3) 01/04/22 07:23 AST 20 U/L (14-36) 01/04/22 07:23 ALT 19 U/L (4-34) 01/04/22 07:23 Alkaline Phosphatase 76 U/L (38-126) 01/04/22 07:23 Total Protein 8.4 g/dL (6.3-8.2) H 01/04/22 07:23 Albumin 4.8 g/dL (3.5-5.0) 01/04/22 07:23 Triglycerides 218.00 mg/dL (0.00-149.00) H 01/04/22 07:23 Cholesterol 271.00 mg/dL (0.00-200.00) H 01/04/22 07:23 LDL Cholesterol, Calc 176.0 mg/dL (0.0-131.0) H 01/04/22 07:23 VLDL Cholesterol, Calc 43.60 mg/dL (5.00-40.00) H 01/04/22 07: HDL Cholesterol 51.40 mg/dL (40.00-60.00) 01/04/22 07: Cholesterol/HDL Ratio 5.27 Ratio 01/04/22 07: TSH 2.000 mIU/L (0.465-4.680) 01/04/22 07:23 Urine Color Dark Brown 01/03/22 17:05 Urine Appearance Turbid (Clear) H 01/03/22 17:05 Urine pH 5.5 (5.0-8.0) 01/03/22 17:05 Ur Specific [place] 1.034 (1.001-1.035) 01/03/22 17:05 Urine Protein 2+ (Negative) H 01/03/22 17:05 Urine Glucose (UA) Negative (Negative) 01/03/22 17:05 Urine Ketones Negative (Negative) 01/03/22 17:05 Urine Blood Moderate (Negative) H 01/03/22 17:05 Urine Nitrite Positive (Negative) H 01/03/22 17:05 Urine Bilirubin Negative (Negative) 01/03/22 17:05 Urine Urobilinogen <2.0 mg/dL (<2.0) 01/03/22 17:05 Ur Leukocyte Esterase Small (Negative) H 01/03/22 17:05 Ur Squamous Epith Cells 8 /hpf (0-4) H 01/03/22 17:05 Amorphous Sediment Moderate /hpf (None) H 01/03/22 17:05 Urine Bacteria Moderate /hpf (None) H 01/03/22 17:05 Hyaline Casts 18 /lpf (0-2) H 01/03/22 17:05 Urine Mucus Many /hpf (None) H 01/03/22 17:05 Urine Opiates Screen Not Detected (NotDetected) 01/03/22 17:12 Ur Oxycodone Screen Not Detected (NotDetected) 01/03/22 17:12 Urine Methadone Screen Not Detected (NotDetected) 01/03/22 17:12 Ur Propoxyphene Screen Not Detected (NotDetected) 01/03/22 17:12 Ur Barbiturates Screen Not Detected (NotDetected) 01/03/22 17:12 U Tricyclic Antidepress Not Detected (NotDetected) 01/03/22 17:12 Ur Phencyclidine Scrn Not Detected (NotDetected) 01/03/22 17:12 Ur Amphetamines Screen Detected (NotDetected) H 01/03/22 17:12 U Methamphetamines Scrn Not Detected (NotDetected) 01/03/22 17:12 U Benzodiazepines Scrn Detected (NotDetected) H 01/03/22 17:12 Urine Cocaine Screen Detected (NotDetected) H 01/03/22 17:12 U Marijuana (THC) Screen Detected (NotDetected) H 01/03/22 17:12 Coronavirus (PCR) Not Detected (Not Detectd) 01/03/22 20:16 Impression: 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 Patient will remain at chronically elevated risk for harm to self and/or others due to her impulsivity and polysubstance abuse. -Continue medications: Trazodone 100 mg by mouth at bedtime for insomnia Remeron 7.5 mg for insomnia/appetite stimulation Zoloft 200 mg by mouth daily for depression/anxiety Lamictal 100 mg by mouth every morning and 150 mg by mouth daily at bedtime for mood stabilization -Patient was counseled on the need for medication compliance and appropriate follow-up at mental health and also primary care for medical issues. Patient verbalized understanding and agreed. -Social work to arrange for and conduct family meeting to ensure safety upon discharge and answer any questions/concerns. Social work also to arrange for patients follow up appointments with [facility] for psychiatric care along with follow up with primary care provider. -Patient counseled on abstaining from recreational drugs and marijuana and alcohol. Was informed/educated on the adverse effects on their physical and mental health. Patient verbally agreed and understood. Patient is awaiting placement for inpatient substance abuse rehabilitation. -Patient was instructed to return to the hospital or seek immediate medical care if their psychiatric or medical symptoms do worsen or reoccur. -Psychoeducation and supportive therapy provided to patient. Risks and benefits of pharmacological treatment versus the risks and benefits of nontreatment weight and discussed. Informed consent discussion held. Common side effects of psychotropics discussed such as, but not limited to headache, GI disturbance, sexual dysfunction, movement disorders, sedation, and orthostatic hypotension. Life threatening and blackbox warnings of prescribed medications also discussed. Potential risks of operating a vehicle or heavy machinery discussed with patient at length. Advised on importance of compliance and a reliable and responsible manner. Patient advised to review FDA consumer labeling of all medications prior to taking. Patient verbalized understanding of potential risks, and agrees with current treatment plan. Patient advised to medically contact physician/emergency personnel if any acute changes in condition occur. Allergies Allergy/AdvReac Type Severity Reaction Status Date / Time No Known Allergies Allergy Verified 01/03/22 18:23 Patient Condition at Discharge: Stable Plan - Discharge Summary New Discharge Prescriptions: New traZODone HCL [Desyrel] 100 mg PO HS 30 Days tab Nicotine 14Mg/24Hr Patch [Habitrol] 1 patch TRANSDERM DAILY 30 Days patch Mirtazapine [Remeron] 7.5 mg PO HS 30 Days tab Sertraline [Zoloft] 200 mg PO DAILY 30 Days tab lamoTRIgine [LaMICtal] 100 mg PO DAILY 30 Days tab lamoTRIgine [LaMICtal] 150 mg PO HS 30 Days tab Continue Albuterol Sulfate [Proair Hfa] 2 puff INHALATION RT-Q4H PRN PRN Reason: Shortness Of Breath Fluticasone/Umeclidin/Vilanter [Trelegy Ellipta 100-62.5-25] 1 puff INHALATION RT-DAILY PRN PRN Reason: Shortness Of Breath Discontinued traZODone HCL [Desyrel] 100 mg PO HS 30 Days tab lamoTRIgine [LaMICtal] 100 mg PO DAILY 30 Days tab lamoTRIgine [LaMICtal] 150 mg PO HS 30 Days tab oxyCODONE-APAP 7.5-325MG [Percocet 7.5-325 mg] 1 tab PO TID PRN PRN Reason: Pain Dextroamphetamine/Amphetamine [Adderall] 20 mg PO BID PRN PRN Reason: adhd ALPRAZolam [Xanax] 1 mg PO DAILY PRN PRN Reason: Anxiety Sertraline [Zoloft] 200 mg PO DAILY Nicotine 14Mg/24Hr Patch [Habitrol] 1 patch TRANSDERM DAILY PRN PRN Reason: Nicotine Cravings Discharge Medication List Albuterol Sulfate [Proair Hfa] 2 puff INHALATION RT-Q4H PRN 12/20/20 [History] Fluticasone/Umeclidin/Vilanter [Trelegy Ellipta 100-62.5-25] 1 puff INHALATION RT-DAILY PRN 01/03/22 [History] Mirtazapine [Remeron] 7.5 mg PO HS 30 Days tab 01/05/22 [Rx] Nicotine 14Mg/24Hr Patch [Habitrol] 1 patch TRANSDERM DAILY 30 Days patch 01/05/22 [Rx] Sertraline [Zoloft] 200 mg PO DAILY 30 Days tab 01/05/22 [Rx] lamoTRIgine [LaMICtal] 100 mg PO DAILY 30 Days tab 01/05/22 [Rx] lamoTRIgine [LaMICtal] 150 mg PO HS 30 Days tab 01/05/22 [Rx] traZODone HCL [Desyrel] 100 mg PO HS 30 Days tab 01/05/22 [Rx] Follow up Appointment(s)/Referral(s): [facility] [Outside] - 01/08/22 11:00 am (01-08-22 at 11:00 with Tarah Olmedo by phone 01-12-22 at 9:[address] Maldonado at [facility] office) Karol Billingsley MD [Primary Care Provider] - 1-2 days Discharge Disposition: HOME SELF-CARE
== END 2022-01-05 14:50 | disposition home or self-care (01) | DRG 897 ==
LOC: EC 14:43 → 3MHU 22:05
PROVIDERS: ADMIT Psychiatry & Neurology Psychiatry; ATTEND Psychiatry & Neurology Psychiatry
DX: F14.14 Cocaine abuse with cocaine-induced mood disorder (principal); R45.851 Suicidal ideations; F12.188 Cannabis abuse with other cannabis-induced disorder; F60.81 Narcissistic personality disorder; F15.14 Other stimulant abuse with stimulant-induced mood disorder; J44.9 Chronic obstructive pulmonary disease, unspecified; F20.9 Schizophrenia, unspecified; Z20.822 Contact with and (suspected) exposure to COVID-19; F90.9 Attention-deficit hyperactivity disorder, unspecified type; F41.8 Other specified anxiety disorders; F43.10 Post-traumatic stress disorder, unspecified; G47.00 Insomnia, unspecified; R19.7 Diarrhea, unspecified; F17.210 Nicotine dependence, cigarettes, uncomplicated; Z71.6 Tobacco abuse counseling; Z79.51 Long term (current) use of inhaled steroids; Z79.899 Other long term (current) drug therapy; Z71.41 Alcohol abuse counseling and surveillance of alcoholic; Z71.51 Drug abuse counseling and surveillance of drug abuser; Z56.0 Unemployment, unspecified; Z98.891 History of uterine scar from previous surgery; Z91.410 Personal history of adult physical and sexual abuse; Z87.828 Personal history of other (healed) physical injury and trauma
CPT/HCPCS: 80053; 80061; 80306; 81001; 82075; 83036; 84443; 85025; 87635; 99285

== ENCOUNTER 2022-01-07 09:25 | Emergency (ER) | payer OTHER ==
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
[2022-01-07 10:14] VITALS: PULSE 66
[2022-01-07 10:23] LABS: Basophils # (A) 0.1 k/uL (0-0.2); Basophils % (A) 1 %; Eosinophils # (A) 0.2 k/uL (0-0.7); Eosinophils % (A) 3 %; HCT 43.1 % (34.0-46.0); HGB 15.2 gm/dL (11.4-16.0); Lymphocytes # (A) 1.8 k/uL (1.0-4.8); Lymphocytes % (A) 29 %; MCH 30.1 pg (25.0-35.0); MCHC 35.3 g/dL (31.0-37.0); MCV 85.5 fL (80.0-100.0); Mean Platelet Volume 8.1; Monocytes # (A) 0.4 k/uL (0-1.0); Monocytes % (A) 7 %; Neutrophils # (A) 3.4 k/uL (1.3-7.7); Neutrophils % (A) 58 %; Platelet Count 222 k/uL (150-450); RBC 5.04 m/uL (3.80-5.40); RDW 12.9 % (11.5-15.5)
[2022-01-07 10:36] LABS: Acetaminophen <10.0 ug/mL; Salicylate <1.0 mg/dL
[2022-01-07] MEDS ORDERED: LORazepam 1 MG TAB PO STA (13:13)
[2022-01-07 13:36] LABS: Appearance,Urine Cloudy (Clear); Bacteria,Urine Many /hpf; Bilirubin,Urine Negative (Negative); Blood,Urine Small (Negative); Color,Urine Yellow; Glucose,Urine (UA) Negative (Negative); Ketones,Urine 1+ (Negative); Leukocyte Esterase,Urine Negative (Negative); Mucus,Urine Moderate /hpf; Nitrite,Urine Positive (Negative); PH, Urine 5.5 (5.0-8.0); Protein,Urine Trace (Negative); RBC,Urine <1 /hpf (0-5); Specific Gravity,Urine 1.027 (1.001-1.035); Squamous Epithelial Cell,Urine 8 /hpf (0-4); Urobilinogen,Urine <2.0 mg/dL (<2.0); WBC,Urine 2 /hpf (0-5)
[2022-01-07 13:42] LABS: Amphetamine Screen,Urine Not Detected (NotDetected); Barbiturate Screen,Urine Not Detected (NotDetected); Benzodiazepines Screen,Urine Detected (NotDetected); Cocaine Screen,Urine Detected (NotDetected); Methadone Screen, Urine Not Detected (NotDetected); Opiate Screen,Urine Not Detected (NotDetected); Oxycodone Screen, Urine Not Detected (NotDetected); Phencyclidine Screen,Urine Not Detected (NotDetected); Tricyclic Antidepressant,Urine Not Detected (NotDetected); Urn Cannabinoid Scrn Detected (NotDetected)
[2022-01-07 13:44] VITALS: BP 107/66; RESP 14; TEMP 97.6
[2022-01-07 14:31] LABS: ALT 19 U/L (4-34); AST 21 U/L (14-36); African American GFR (CKD) >90 (>60 ml/min/1.73 sqM); Albumin 4.3 g/dL (3.5-5.0); Alkaline Phosphatase 71 U/L (38-126); Anion Gap 9 mmol/L; Blood Urea Nitrogen 17 mg/dL (7-17); Calcium 9.9 mg/dL (8.4-10.2); Carbon Dioxide 16 mmol/L (22-30); Chloride 113 mmol/L (98-107); Glucose 108 mg/dL (74-99); Non-African American GFR(CKD) 84 (>60 ml/min/1.73 sqM); Potassium 3.8 mmol/L (3.5-5.1); Sodium 138 mmol/L (137-145); Total Bilirubin 0.6 mg/dL (0.2-1.3); Total Protein 7.6 g/dL (6.3-8.2)
[2022-01-07] MEDS ORDERED: ZIPRASIDONE 20 MG VIAL IM STA (14:39)
== END 2022-01-07 17:46 | disposition home or self-care (01) ==
LOC: EC 09:25
DX: F19.10 Other psychoactive substance abuse, uncomplicated (principal); F41.9 Anxiety disorder, unspecified; N39.0 Urinary tract infection, site not specified; R45.1 Restlessness and agitation; F31.9 Bipolar disorder, unspecified; F90.9 Attention-deficit hyperactivity disorder, unspecified type; F20.9 Schizophrenia, unspecified; Z20.822 Contact with and (suspected) exposure to COVID-19; J44.9 Chronic obstructive pulmonary disease, unspecified; F17.200 Nicotine dependence, unspecified, uncomplicated; F12.90 Cannabis use, unspecified, uncomplicated; Z79.51 Long term (current) use of inhaled steroids; Z79.899 Other long term (current) drug therapy
CPT/HCPCS: 96372; 82075; 36415; 93005; 80053; 84443; 85025; 81001; 80306; 80143; 87635; 80179; 99284; J3486; 99285

== ENCOUNTER 2022-01-09 13:35 | Emergency (ER) | payer OTHER ==
[2022-01-09 14:30] VITALS: RESP 16; TEMP 97.9
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
[2022-01-09 19:05] VITALS: BP 125/72; PULSE 76
[2022-01-09 19:49] LABS: Amphetamine Screen,Urine Not Detected (NotDetected); Barbiturate Screen,Urine Not Detected (NotDetected); Benzodiazepines Screen,Urine Not Detected (NotDetected); Cocaine Screen,Urine Detected (NotDetected); Methadone Screen, Urine Not Detected (NotDetected); Opiate Screen,Urine Not Detected (NotDetected); Oxycodone Screen, Urine Not Detected (NotDetected); Phencyclidine Screen,Urine Not Detected (NotDetected); Tricyclic Antidepressant,Urine Not Detected (NotDetected); Urn Cannabinoid Scrn Detected (NotDetected)
[2022-01-09] MEDS ORDERED: MAG HYDROX/AL HYDROX/SIMETH 30 ML, HYOSCYAMINE ELIXIR 10 ML, LIDOCAINE VISCOUS 2% 10 ML PO STA ×3 (20:10)
[2022-01-09] MEDS ORDERED: MAG HYDROX/AL HYDROX/SIMETH 30 ML, HYOSCYAMINE ELIXIR 10 ML PO STA ×2 (20:15)
== END 2022-01-09 22:39 | disposition home or self-care (01) ==
LOC: EC 13:35
DX: F39 Unspecified mood [affective] disorder (principal); J44.9 Chronic obstructive pulmonary disease, unspecified; F31.9 Bipolar disorder, unspecified; F41.9 Anxiety disorder, unspecified; F20.9 Schizophrenia, unspecified; F17.200 Nicotine dependence, unspecified, uncomplicated; F12.90 Cannabis use, unspecified, uncomplicated; F15.90 Other stimulant use, unspecified, uncomplicated; Z79.51 Long term (current) use of inhaled steroids; Z79.899 Other long term (current) drug therapy
CPT/HCPCS: 80306; 82075; 99284

== ENCOUNTER 2022-01-10 01:03 | Emergency (ER) | payer OTHER ==
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
[2022-01-10 04:44] VITALS: BP 116/65; PULSE 57; RESP 16; TEMP 97.8
== END 2022-01-10 04:30 | disposition home or self-care (01) ==
LOC: EC 01:03
DX: F14.90 Cocaine use, unspecified, uncomplicated (principal); J44.9 Chronic obstructive pulmonary disease, unspecified; F17.200 Nicotine dependence, unspecified, uncomplicated; F12.90 Cannabis use, unspecified, uncomplicated; F15.90 Other stimulant use, unspecified, uncomplicated
CPT/HCPCS: 82075; 99283

== ENCOUNTER 2022-01-10 08:27 | Inpatient (IN) | payer MEDICAID, OTHER ==
[2022-01-10 09:12] LABS: Amphetamine Screen,Urine Not Detected (NotDetected); Benzodiazepines Screen,Urine Detected (NotDetected); Cocaine Screen,Urine Detected (NotDetected); Methadone Screen, Urine Not Detected (NotDetected); Opiate Screen,Urine Not Detected (NotDetected); Phencyclidine Screen,Urine Not Detected (NotDetected); Tricyclic Antidepressant,Urine Not Detected (NotDetected); Urn Cannabinoid Scrn Detected (NotDetected)
[2022-01-10 09:13] LABS: Barbiturate Screen,Urine Not Detected (NotDetected); Oxycodone Screen, Urine Not Detected (NotDetected)
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
[2022-01-10] MEDS ORDERED: OLANZapine 5 MG TAB PO ONE (11:35)
[2022-01-10] MEDS ORDERED: LORazepam 2 MG/ML INJ IM STA (16:01)
[2022-01-10] MEDS ORDERED: HALOPERIDOL LACTATE 5 MG/ML 1 ML VIAL IM STA (16:02)
[2022-01-10] MEDS ORDERED: LORazepam 1 MG TAB PO PRN (19:41)
[2022-01-10] MEDS ORDERED: MAG HYDROX/AL HYDROX/SIMETH 30 ML CUP PO PRN (19:41)
[2022-01-10] MEDS ORDERED: HALOPERIDOL LACTATE 5 MG/ML 1 ML VIAL IM PRN (19:41)
[2022-01-10] MEDS ORDERED: LORazepam 2 MG/ML INJ IM PRN (19:46)
[2022-01-10] MEDS ORDERED: ALBUTEROL HFA INHALER INHALATION PRN (20:21)
[2022-01-10] MEDS ORDERED: OLANZapine 2.5 MG TAB PO SCH (21:00)
--- NOTE | 2022-01-10 22:22 | P.PN ---
Progress Note - Text Progress Note Date: 01/10/22 Patient sedated and unable to be evaluated.
[2022-01-11] MEDS: NICOTINE 14MG/24HR PATCH TRANSDERM SCH ×2 (02:09→08:22)
[2022-01-11] MEDS: SYMBICORT 80-4.5 MCG INHALER INHALATION SCH ×3 (02:10→09:00)
[2022-01-11] MEDS: lamoTRIgine 25 MG TAB PO SCH ×4 (02:10→20:09)
[2022-01-11] MEDS: NITROFURANTOIN MONOHYD/M-CRYST 100 MG CAP PO SCH ×4 (02:10→21:17)
[2022-01-11 07:42] LABS: Basophils # (A) 0.1 k/uL (0-0.2); Basophils % (A) 1 %; Eosinophils # (A) 0.1 k/uL (0-0.7); Eosinophils % (A) 2 %; Lymphocytes # (A) 1.7 k/uL (1.0-4.8); Lymphocytes % (A) 21 %; MCH 29.7 pg (25.0-35.0); MCHC 34.1 g/dL (31.0-37.0); Mean Platelet Volume 8.5; Monocytes # (A) 0.6 k/uL (0-1.0); Monocytes % (A) 7 %; Neutrophils # (A) 5.4 k/uL (1.3-7.7); Neutrophils % (A) 68 %; Platelet Count 232 k/uL (150-450); RBC 5.05 m/uL (3.80-5.40); RDW 13.1 % (11.5-15.5)
[2022-01-11 07:55] LABS: ALT 20 U/L (4-34); AST 22 U/L (14-36); African American GFR (CKD) >90 (>60 ml/min/1.73 sqM); Albumin 4.5 g/dL (3.5-5.0); Alkaline Phosphatase 72 U/L (38-126); Anion Gap 9 mmol/L; Blood Urea Nitrogen 13 mg/dL (7-17); Calcium 9.6 mg/dL (8.4-10.2); Carbon Dioxide 23 mmol/L (22-30); Chloride 108 mmol/L (98-107); Glucose 113 mg/dL (74-99); Non-African American GFR(CKD) 87 (>60 ml/min/1.73 sqM); Sodium 140 mmol/L (137-145); Total Bilirubin 0.7 mg/dL (0.2-1.3); Total Protein 7.9 g/dL (6.3-8.2)
[2022-01-11] MEDS: TIOTROPIUM 2.5 MCG INHALER INHALATION SCH (08:23)
[2022-01-11] MEDS: SERTRALINE 50 MG TAB PO SCH ×2 (08:24→12:40)
[2022-01-11 10:39] LABS: LDL Cholesterol,Calculated 143.3 mg/dL (0.0-131.0)
[2022-01-11] MEDS: haloperidoL 5 MG TAB PO PRN ×2 (12:40→20:11)
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
[2022-01-11] MEDS ORDERED: hydrOXYzine HCL 50 MG/ML 1 ML VIAL IM PRN (13:11)
[2022-01-11] MEDS: hydrOXYzine pamoate 25 MG CAP PO PRN ×2 (13:29→20:11)
[2022-01-11] MEDS ORDERED: chlorproMAZINE 25 MG/ML 2 ML AMP IM STA (20:52)
[2022-01-11] MEDS ORDERED: PALIPERIDONE 3 MG TAB.ER.24 PO SCH (21:00)
--- NOTE | 2022-01-12 02:10 | P.PN ---
Progress Note - Text Progress Note Date: 01/12/22 Patient actively psychotic and not appropriate for evaluation as per [facility] RN.
[2022-01-12] MEDS: NICOTINE 14MG/24HR PATCH TRANSDERM SCH (08:12)
[2022-01-12] MEDS: SYMBICORT 80-4.5 MCG INHALER INHALATION SCH ×2 (08:13→20:04)
[2022-01-12] MEDS: SERTRALINE 50 MG TAB PO SCH (08:13)
[2022-01-12] MEDS: lamoTRIgine 25 MG TAB PO SCH ×2 (08:13→20:04)
[2022-01-12] MEDS: TIOTROPIUM 2.5 MCG INHALER INHALATION SCH (08:13)
[2022-01-12] MEDS: NITROFURANTOIN MONOHYD/M-CRYST 100 MG CAP PO SCH ×2 (08:13→20:04)
[2022-01-12] MEDS: haloperidoL 5 MG TAB PO PRN ×2 (10:34→22:59)
[2022-01-12] MEDS: hydrOXYzine pamoate 25 MG CAP PO PRN (10:34)
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
[2022-01-12] MEDS: PALIPERIDONE 6 MG TAB.ER.24 PO SCH (20:04)
[2022-01-13] MEDS: hydrOXYzine pamoate 25 MG CAP PO PRN ×3 (00:44→18:17)
[2022-01-13] MEDS: NICOTINE 14MG/24HR PATCH TRANSDERM SCH (07:49)
[2022-01-13] MEDS: NITROFURANTOIN MONOHYD/M-CRYST 100 MG CAP PO SCH ×2 (07:50→20:57)
[2022-01-13] MEDS: lamoTRIgine 25 MG TAB PO SCH ×2 (07:50→20:57)
[2022-01-13] MEDS: TIOTROPIUM 2.5 MCG INHALER INHALATION SCH ×2 (07:50→08:09)
[2022-01-13] MEDS: SYMBICORT 80-4.5 MCG INHALER INHALATION SCH ×3 (07:51→20:56)
[2022-01-13] MEDS ORDERED: LORATADINE-PSEUDOEPH 5-120 MG 1 EACH TAB.ER.12H PO PRN (09:54)
--- NOTE | 2022-01-13 13:25 | P.PN ---
Progress Note - Text Progress Note Date: 01/13/22 Interval history: Patient was seen in conference room and was directable and agreeable to speak with business writer. At this time patient denies any suicidal or homicidal ideations intent or plan. Denies any Auditory or visual hallucinations. Patient denies any side effects from the medications and has been compliant with meds. Mental status exam: General Appearance: [alert, directable, and cooperative.] Behavior: [No agitated behavior. Patient i directable] Speech: Patient's speech is fluent and nonpressured. Mood/Affect: "excited" mood incongruent Suicidality/Homicidality: Patient denies having any suicidal or homicidal ideation intent or plan. Perceptions: Patient denies any auditory or visual hallucinations. Though content/process: [There is no evidence of any delusional thought content and thought process is linear and goal-directed.] Memory and concentration: AOX3, grossly intact for the purposes of this session Judgment and insight: impaired Assessment/Plan: Continue with current diagnosis. Patient continues to meet criteria for inpatient psychiatric admission for symptom stabilization and safety.[Patient will be maintained on current psychotropic medication regimen.] Monitor for medication compliance and for any psychotropic medication side effects. Will continue to monitor ongoing response to treatment. Encouraged participation in milieu.
[2022-01-13] MEDS: PALIPERIDONE 6 MG TAB.ER.24 PO SCH (20:57)
[2022-01-14] MEDS: ACETAMINOPHEN TAB 325 MG TAB PO PRN ×2 (04:16→17:50)
[2022-01-14] MEDS: TIOTROPIUM 2.5 MCG INHALER INHALATION SCH (08:00)
[2022-01-14] MEDS: SYMBICORT 80-4.5 MCG INHALER INHALATION SCH ×2 (08:00→20:14)
[2022-01-14] MEDS: NICOTINE 14MG/24HR PATCH TRANSDERM SCH (08:01)
[2022-01-14] MEDS: NITROFURANTOIN MONOHYD/M-CRYST 100 MG CAP PO SCH ×2 (08:01→20:16)
[2022-01-14] MEDS: lamoTRIgine 25 MG TAB PO SCH ×2 (08:01→20:16)
--- NOTE | 2022-01-14 11:38 | P.PN ---
Progress Note - Text Interval history: Patient was directable and agreeable to speak with lead technical writer. Reports increased frequency of crying and cannot tell the reasons behind her crying.. At this time patient denies any suicidal or homicidal ideations intent or plan. Denies any Auditory or visual hallucinations. Patient denies any side effects from the medications and has been compliant with meds. Mental status exam: General Appearance: [Patient appears to be stated age is alert, directable, and cooperative.] Behavior: [No agitated behavior. Patient is calm and directable. Intrusive Speech: Patient's speech is fluent and nonpressured. Mood/Affect: Mood is "good", affect is congruent and full range, tearful appropriately during the interview Suicidality/Homicidality: Patient denies having any suicidal or homicidal ideation intent or plan. Perceptions: Patient denies any auditory or visual hallucinations. Though content/process: [There is no evidence of any delusional thought content and thought process is linear and goal-directed.] Memory and concentration: AOX3, grossly intact for the purposes of this session Judgment and insight: improving mildly Assessment/Plan: Continue with current diagnosis. Patient continues to meet criteria for inpatient psychiatric admission for symptom stabilization and safety.[Patient will be maintained on current psychotropic medication regimen.] Monitor for medication compliance and for any psychotropic medication side effects. Will continue to monitor ongoing response to treatment. Encouraged participation in milieu.
[2022-01-14] MEDS: hydrOXYzine pamoate 25 MG CAP PO PRN (12:20)
[2022-01-14] MEDS: haloperidoL 5 MG TAB PO PRN (18:38)
[2022-01-14] MEDS: PALIPERIDONE 6 MG TAB.ER.24 PO SCH (20:16)
[2022-01-14] MEDS ORDERED: QUEtiapine 100 MG TAB PO STA (21:03)
[2022-01-15] MEDS: lamoTRIgine 25 MG TAB PO SCH ×2 (08:50→20:05)
[2022-01-15] MEDS: NICOTINE 14MG/24HR PATCH TRANSDERM SCH (08:50)
[2022-01-15] MEDS: hydrOXYzine pamoate 25 MG CAP PO PRN ×3 (08:50→17:49)
[2022-01-15] MEDS: TIOTROPIUM 2.5 MCG INHALER INHALATION SCH (08:53)
[2022-01-15] MEDS: SYMBICORT 80-4.5 MCG INHALER INHALATION SCH ×2 (08:53→17:49)
[2022-01-15] MEDS: NITROFURANTOIN MONOHYD/M-CRYST 100 MG CAP PO SCH (09:06)
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
[2022-01-15] MEDS: haloperidoL 5 MG TAB PO PRN (11:15)
[2022-01-15 14:37] LABS: Appearance,Urine Clear (Clear); Bacteria,Urine Rare /hpf; Bilirubin,Urine Negative (Negative); Blood,Urine Trace (Negative); Color,Urine Yellow; Glucose,Urine (UA) Negative (Negative); Ketones,Urine 2+ (Negative); Leukocyte Esterase,Urine Negative (Negative); Mucus,Urine Occasional /hpf; Nitrite,Urine Negative (Negative); Protein,Urine Negative (Negative); RBC,Urine <1 /hpf (0-5); Specific Gravity,Urine 1.019 (1.001-1.035); Squamous Epithelial Cell,Urine 3 /hpf (0-4); Urobilinogen,Urine <2.0 mg/dL (<2.0); WBC,Urine 2 /hpf (0-5)
[2022-01-15] MEDS: PALIPERIDONE 3 MG TAB.ER.24 PO SCH (20:05)
[2022-01-15] MEDS: ACETAMINOPHEN TAB 325 MG TAB PO PRN (23:58)
[2022-01-16] MEDS: NICOTINE 14MG/24HR PATCH TRANSDERM SCH (09:53)
[2022-01-16] MEDS: TIOTROPIUM 2.5 MCG INHALER (MHU) INHALATION SCH (09:54)
[2022-01-16] MEDS: SYMBICORT 80-4.5 MCG INHALER (MHU) INHALATION SCH ×2 (09:54→20:19)
[2022-01-16] MEDS: lamoTRIgine 25 MG TAB PO SCH ×2 (10:08→20:20)
--- NOTE | 2022-01-16 12:14 | P.PN ---
Progress Note - Text Progress Note Date: 01/16/22 Interval History: Patient was seen wandering the hallways and was directable and agreeable to speak with underwriter in the office. The patient continues to be grossly disorganized and is often bringing up topics that appear random to this provider. She now states today that she wanted to talk about sharing a bed with her sister and they were growing up. She began to talk about how she would touch her sister's breast. When asked how any of this is relevant to what is going on currently, the patient is unable to make any connection. She continues to approach this provider with various random questions throughout the day. She continues to be noted by staff to be sexually inappropriate with others on the unit. She has been adherent with her medications and is not reporting any significant side effects at this time. She is denying any suicidal or homicidal ideation, intention, and/or plan. She denies any auditory or visual hallucinations. She does admit to elevated paranoia and concern for her safety however is unable to verbalize what she is thinking about. She appears to be vague. Mental Status Exam: General Appearance: Patient appears to be stated age is alert, difficult to direct, and attempts to cooperate. Behavior: Patient is calmly seated without any agitated behavior. Speech: Patient's speech is fluent and nonpressured. Spontaneous. Mood/Affect: Mood is "not good" Affect is flat and bizarre. Suicidality/Homicidality: Patient denies having any suicidal or homicidal ideation intent or plan. Perceptions: Patient denies any visual hallucinations but endorses auditory hallucinations that are commanding in nature. Though content/process: The patient appears to be grossly disorganized with magical thinking and loose associations. Continues responding to internal stimuli. Memory and concentration: Grossly poor. Judgment and insight: Very poor. Vital Signs Temp 98.4 F 01/16/22 06:37 Pulse 107 H 01/16/22 06:37 Resp 16 01/15/22 07:02 BP 106/60 01/16/22 06:37 Pulse Ox 96 01/16/22 06:37 Laboratory Results - Last 24 Hours 01/15/22 14:20 Urine Color Yellow Urine Appearance Clear Urine pH 5.0 Ur Specific Greene 1.019 Urine Protein Negative Urine Glucose (UA) Negative Urine Ketones 2+ H Urine Blood Trace H Urine Nitrite Negative Urine Bilirubin Negative Urine Urobilinogen <2.0 Ur Leukocyte Esterase Negative Urine RBC <1 Urine WBC 2 Ur Squamous Epith Cells 3 Urine Bacteria Rare H Urine Mucus Occasional H Assessment Acute psychosis - likely secondary to crack cocaine use Depressive disorder, secondary to drug abuse Bipolar disorder, by history Polysubstance abuse, including cocaine use disorder, tobacco, marijuana Plan: -Patient continues to meet criteria for inpatient psychiatric admission for symptom stabilization and safety. The patient has been petitioned and certified. -Medications: Continue Invega 9 mg by mouth at bedtime for mood stabilization/psychosis. We will consider discontinuing any psychotropic medications if no significant improvement in the patient's disorganization as the patient did use a significant amount of drugs likely altering brain chemistry. We will increase Lamictal to 75 mg mg by mouth twice daily for management of mood stabilization and also concern for seizure prophylaxis given the patient's substance abuse history. -When necessary Vistaril and Haldol for agitation/aggression. -NRT - nicotine patch -SW on board for discharge planning. Encouraged the patient to participate in milieu.
[2022-01-16] MEDS: PALIPERIDONE 3 MG TAB.ER.24 PO SCH (20:20)
[2022-01-16] MEDS: hydrOXYzine pamoate 25 MG CAP PO PRN (22:27)
[2022-01-17] MEDS: NICOTINE 14MG/24HR PATCH TRANSDERM SCH (07:57)
[2022-01-17] MEDS: TIOTROPIUM 2.5 MCG INHALER (MHU) INHALATION SCH (07:57)
[2022-01-17] MEDS: lamoTRIgine 25 MG TAB PO SCH ×2 (07:57→20:15)
[2022-01-17] MEDS: SYMBICORT 80-4.5 MCG INHALER (MHU) INHALATION SCH ×2 (07:57→21:17)
[2022-01-17] MEDS: haloperidoL 5 MG TAB PO PRN (10:10)
[2022-01-17] MEDS: hydrOXYzine pamoate 25 MG CAP PO PRN (10:10)
[2022-01-17] MEDS ORDERED: chlorproMAZINE 25 MG TAB PO STA (11:20)
[2022-01-17] MEDS ORDERED: chlorproMAZINE 25 MG TAB PO PRN (11:21)
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
[2022-01-18] MEDS: chlorproMAZINE 25 MG TAB PO PRN ×2 (01:46→08:20)
[2022-01-18] MEDS: hydrOXYzine pamoate 25 MG CAP PO PRN ×2 (01:46→08:21)
[2022-01-18] MEDS: lamoTRIgine 25 MG TAB PO SCH ×2 (08:21→20:55)
[2022-01-18] MEDS: NICOTINE 14MG/24HR PATCH TRANSDERM SCH (08:22)
--- NOTE | 2022-01-18 10:23 | P.PN ---
Progress Note - Text Progress Note Date: 01/18/22 Interval History: Patient was seen wandering the hallways and was directable and agreeable to speak with curriculum writer in the office. Patient appears to be more logical today however continues to report some advent preoccupation. She states that she has nothing to fear because she is "with God." Patient denies any suicidal or homicidal ideation, intention, and/or plan. The patient was noted by staff to continue to display some elopement behaviors and enter other patient's rooms. When asked why she does this, the patient states that she "feels like him being a burden to others and need to leave. I feel like my time is up." Furthermore, the patient states that "I'm looking for Radha when I enter other people's rooms." Radha is the patient's mother in law. She is otherwise adherent with her medications is not reporting any significant side effects at this time. It is noted by staff that she had some difficulty with sleep last night and had to receive when necessary medication and she continued to display some disorganized and elevated behaviors. Mental Status Exam: General Appearance: Patient appears to be stated age is alert, difficult to direct, and attempts to cooperate. Behavior: Patient is calmly seated without any agitated behavior. Eye contact is appropriate. Speech: Patient's speech is fluent and nonpressured. Spontaneous. Mood/Affect: Mood is "I'm with God" Affect is blunted and bizarre. Suicidality/Homicidality: Patient denies having any suicidal or homicidal ideation intent or plan. Perceptions: Patient endorses both auditory and visual hallucinations. Though content/process: Patient continues to respond to some internal stimuli. She is less disorganized. Memory and concentration: Grossly poor. Judgment and insight: Very poor. Vital Signs Temp 97 F L 01/18/22 06:35 Pulse 99 01/18/22 06:35 Resp 16 01/18/22 06:35 BP 116/55 01/18/22 06:35 Pulse Ox 96 01/16/22 06:37 Assessment Acute psychosis - likely secondary to crack cocaine use Depressive disorder, secondary to drug abuse Bipolar disorder, by history Polysubstance abuse, including cocaine use disorder, tobacco, marijuana Plan: -Patient continues to meet criteria for inpatient psychiatric admission for symptom stabilization and safety. The patient has been petitioned and certified. -Medications: Increase Prolixin to 4 mg by mouth twice a day for acute psychosis. Continue Lamictal 75 mg mg by mouth twice daily for management of mood stabilization and also concern for seizure prophylaxis given the patient's substance abuse history. -When necessary Vistaril and Thorazine for agitation/aggression. -NRT - nicotine patch -SW on board for discharge planning. Encouraged the patient to participate in milieu.
[2022-01-18] MEDS: TIOTROPIUM 2.5 MCG INHALER (MHU) INHALATION SCH (12:27)
[2022-01-18] MEDS: SYMBICORT 80-4.5 MCG INHALER (MHU) INHALATION SCH ×2 (12:27→21:06)
[2022-01-18] MEDS: BENZTROPINE MESYLATE 0.5 MG TAB PO SCH (20:54)
[2022-01-18] MEDS: ACETAMINOPHEN TAB 325 MG TAB PO PRN (20:57)
[2022-01-19] MEDS: TIOTROPIUM 2.5 MCG INHALER (MHU) INHALATION SCH (08:39)
[2022-01-19] MEDS: NICOTINE 14MG/24HR PATCH TRANSDERM SCH (08:40)
[2022-01-19] MEDS: lamoTRIgine 25 MG TAB PO SCH (08:40)
[2022-01-19] MEDS: BENZTROPINE MESYLATE 0.5 MG TAB PO SCH ×2 (08:40→20:42)
[2022-01-19] MEDS: SYMBICORT 80-4.5 MCG INHALER (MHU) INHALATION SCH ×2 (08:41→20:39)
[2022-01-19] MEDS: ACETAMINOPHEN TAB 325 MG TAB PO PRN ×2 (12:00→16:11)
--- NOTE | 2022-01-19 15:35 | P.PN ---
Progress Note - Text Progress Note Date: 01/19/22 Interval History: Patient was seen wandering the hallways and was persistent in wanting to speak with consumer loan underwriter today. Patient appears to be fairly alert and was more organized. She states that she is doing better in terms of her mood and anxiety today. She continues to have superficial insight and judgment. She claims that she does not want to go to rehab any longer. She was focusing on discharge. She continues to have difficulties with concentration and impairments in her thought process. She claims that she is sleeping a bit better last night. She was agreeable to try melatonin over Prolixin increased. She was fairly intrusive with consumer loan underwriter. At this time she is denying any auditory or visual hallucinations. She is denying any suicidal or homicidal ideations intent or plan. Patient apparently has still been trying to elope from the unit and checking all the door handles. Mental Status Exam: General Appearance: Patient appears to be stated age is alert, difficult to direct, and attempts to cooperate. Bizarre at times. Behavior: Patient is calmly seated without any agitated behavior. Eye contact is appropriate. Speech: Patient's speech is fluent and nonpressured. Spontaneous. Mood/Affect: Mood is "better" Affect is blunted Suicidality/Homicidality: Patient denies having any suicidal or homicidal ideation intent or plan. Perceptions: Patient endorses both auditory and visual hallucinations. Though content/process: Patient continues to respond to some internal stimuli, this is improving. She is less disorganized, improving Memory and concentration: Grossly poor. Alert and oriented 3. Judgment and insight: Chronically poor, improving Assessment Acute psychosis - likely secondary to crack cocaine use Depressive disorder, secondary to drug abuse Bipolar disorder, by history Polysubstance abuse, including cocaine use disorder, tobacco, marijuana Plan: -Patient continues to meet criteria for inpatient psychiatric admission for symptom stabilization and safety. The patient has been petitioned and certified. -Medications: Increase Prolixin to 5 mg by mouth twice a day for acute psychosis. Would suggest to transition patient onto Prolixin D to ensure compliance prior to discharge. Increased Lamictal 100 mg by mouth twice daily for management of mood stabilization and also concern for seizure prophylaxis given the patient's substance abuse history. -Added melatonin daily at bedtime for sleep. -Cogentin 0.5 mg twice a day for EPS prophylaxis. -When necessary Vistaril and Thorazine for agitation/aggression. -NRT - nicotine patch -SW on board for discharge planning. Encouraged the patient to participate in milieu. Patient claims that she is no longer interested in rehab therefore patient can likely be discharged back home likely early next week if she continues to improve.
[2022-01-19] MEDS: hydrOXYzine pamoate 25 MG CAP PO PRN (20:42)
[2022-01-19] MEDS: MELATONIN 3 MG TABLET PO SCH (20:43)
[2022-01-19] MEDS: lamoTRIgine 100 MG TAB PO SCH (20:43)
[2022-01-20] MEDS: ACETAMINOPHEN TAB 325 MG TAB PO PRN ×4 (00:24→22:52)
[2022-01-20] MEDS: TIOTROPIUM 2.5 MCG INHALER (MHU) INHALATION SCH (08:27)
[2022-01-20] MEDS: SYMBICORT 80-4.5 MCG INHALER (MHU) INHALATION SCH ×2 (08:27→21:34)
[2022-01-20] MEDS: lamoTRIgine 100 MG TAB PO SCH ×2 (08:28→20:50)
[2022-01-20] MEDS: BENZTROPINE MESYLATE 0.5 MG TAB PO SCH ×2 (08:28→20:50)
[2022-01-20] MEDS: NICOTINE 14MG/24HR PATCH TRANSDERM SCH (08:28)
[2022-01-20] MEDS: MELATONIN 3 MG TABLET PO SCH (20:50)
[2022-01-20] MEDS: hydrOXYzine pamoate 25 MG CAP PO PRN (21:39)
[2022-01-21 06:54] VITALS: RESP 16
[2022-01-21] MEDS: NICOTINE 14MG/24HR PATCH TRANSDERM SCH (07:48)
[2022-01-21] MEDS: SYMBICORT 80-4.5 MCG INHALER (MHU) INHALATION SCH ×2 (07:48→20:58)
[2022-01-21] MEDS: TIOTROPIUM 2.5 MCG INHALER (MHU) INHALATION SCH (07:48)
[2022-01-21] MEDS: BENZTROPINE MESYLATE 0.5 MG TAB PO SCH ×2 (07:49→20:58)
[2022-01-21] MEDS: lamoTRIgine 100 MG TAB PO SCH ×2 (07:49→20:58)
[2022-01-21] MEDS: MAGNESIUM HYDROXIDE 2,400 MG/10 ML CUP PO PRN (11:40)
[2022-01-21] MEDS: ACETAMINOPHEN TAB 325 MG TAB PO PRN (12:49)
--- NOTE | 2022-01-21 18:49 | P.PN ---
Progress Note - Text Progress Note Date: 01/20/22 Interval history: Patient was seen in her room and was directable and agreeable to speak with real estate underwriter. At this time patient denies any suicidal or homicidal ideations intent or plan. Denies any Auditory or visual hallucinations. Patient denies any side effects from the medications and has been compliant with meds. Mental status exam: General Appearance: [Patient appears to be older than stated age is alert, directable, and cooperative.] Behavior: [No agitated behavior. Patient is calm and directable] Speech: Patient's speech is fluent and nonpressured. Mood/Affect: Mood is improving mildly, affect is congruent and constricted. Suicidality/Homicidality: Patient denies having any suicidal or homicidal ideation intent or plan. Perceptions: Patient denies any auditory or visual hallucinations. Though content/process: [There is no evidence of any delusional thought content and thought process is linear and goal-directed.] Memory and concentration: AOX3, grossly intact for the purposes of this session Judgment and insight: improving mildly Assessment/Plan: Continue with current diagnosis. Patient continues to meet criteria for inpatient psychiatric admission for symptom stabilization and safety.[Patient will be maintained on current psychotropic medication regimen.] Monitor for medication compliance and for any psychotropic medication side effects. Will continue to monitor ongoing response to treatment. Encouraged participation in milieu.
--- NOTE | 2022-01-21 18:50 | P.PN ---
Progress Note - Text Progress Note Date: 01/21/22 Interval history: Patient was seen in her room and was directable and agreeable to speak with com writer. States that she is doing "great" and states that her depression is improving continues to report some issues sleeping. At this time patient denies any suicidal or homicidal ideations intent or plan. Denies any Auditory or visual hallucinations. Reports constipation because of the medications Mental status exam: General Appearance: [Patient appears to be older than stated age is alert, directable, and cooperative.] Behavior: [No agitated behavior. Patient is calm and directable] Speech: Patient's speech is fluent and nonpressured. Mood/Affect: Mood is improving mildly, affect is congruent and constricted. Suicidality/Homicidality: Patient denies having any suicidal or homicidal ideation intent or plan. Perceptions: Patient denies any auditory or visual hallucinations. Though content/process: [There is no evidence of any delusional thought content and thought process is linear and goal-directed.] Memory and concentration: AOX3, grossly intact for the purposes of this session Judgment and insight: improving mildly Assessment/Plan: Continue with current diagnosis. Patient continues to meet criteria for inpatient psychiatric admission for symptom stabilization and safety.[Patient will be maintained on current psychotropic medication regimen.] Monitor for medication compliance and for any psychotropic medication side effects. Will continue to monitor ongoing response to treatment. Encouraged participation in milieu.
[2022-01-21] MEDS: MELATONIN 3 MG TABLET PO SCH (20:58)
[2022-01-21] MEDS: hydrOXYzine pamoate 25 MG CAP PO PRN (21:02)
[2022-01-22] MEDS: ACETAMINOPHEN TAB 325 MG TAB PO PRN ×4 (01:29→19:45)
[2022-01-22] MEDS: TIOTROPIUM 2.5 MCG INHALER (MHU) INHALATION SCH (07:37)
[2022-01-22] MEDS: SYMBICORT 80-4.5 MCG INHALER (MHU) INHALATION SCH ×2 (07:37→20:46)
[2022-01-22] MEDS: NICOTINE 14MG/24HR PATCH TRANSDERM SCH (07:38)
[2022-01-22] MEDS: lamoTRIgine 100 MG TAB PO SCH ×2 (07:38→20:48)
[2022-01-22] MEDS: BENZTROPINE MESYLATE 0.5 MG TAB PO SCH ×2 (07:38→20:47)
[2022-01-22] MEDS: MAGNESIUM HYDROXIDE 2,400 MG/10 ML CUP PO PRN (08:30)
--- NOTE | 2022-01-22 11:36 | P.PN ---
Progress Note - Text Progress Note Date: 01/22/22 Interval History: Patient was seen wandering the hallways and was directable and agreeable to speak with copywriter in the office. The patient is presenting as much more organized and linear in conversation. She is currently not reporting any suicidal or homicidal ideation, intention, and/or plan. She is denying any auditory or visual hallucinations. The patient has been adherent with her medications and is not reporting any significant side effects aside constipation. It is noted that she does have some difficulty with sleep however she has no reports of any issues with appetite at this time. Patient was initially agreeable to going to rehab however she appears not interested at this time. Mental Status Exam: General Appearance: Patient appears to be stated age is alert, directable and is cooperative. Behavior: Patient is calmly seated without any agitated behavior. Eye contact is appropriate. Speech: Patient's speech is fluent and nonpressured. Spontaneous. Mood/Affect: Mood is "feeling a lot better." Affect is euthymic with appropriate range. Suicidality/Homicidality: Patient denies having any suicidal or homicidal ideation intent or plan. Perceptions: Patient endorses both auditory and visual hallucinations. Though content/process: Linear and logical in short conversation. No bizarre delusional thought content is endorsed. Memory and concentration: Much improved. Currently alert and oriented in all spheres. Judgment and insight: Much improved. Vital Signs Temp 97.5 F L 01/22/22 05:13 Pulse 75 01/21/22 21:00 Resp 16 01/22/22 05:13 BP 111/79 01/22/22 05:13 Pulse Ox 96 01/16/22 06:37 Intake & Output 01/21/22 01/22/22 01/22/22 18:59 06:59 18:59 Weight 72.575 kg Assessment Acute psychosis - likely secondary to crack cocaine use Depressive disorder, secondary to drug abuse Bipolar disorder, by history Polysubstance abuse, including cocaine use disorder, tobacco, marijuana Plan: -Patient continues to meet criteria for inpatient psychiatric admission for sy mptom stabilization and safety. The patient has been petitioned and certified. Patient deferred mental health court. -Medications: Continue Prolixin 5 mg by mouth twice a day for acute psychosis. Continue Lamictal 100 mg mg by mouth twice daily for management of mood stabilization -When necessary Vistaril and Thorazine for agitation/aggression. -NRT - nicotine patch -SW on board for discharge planning. Encouraged the patient to participate in milieu.
[2022-01-22 15:58] VITALS: BMI 25.0
[2022-01-22] MEDS: hydrOXYzine pamoate 25 MG CAP PO PRN (20:48)
[2022-01-22] MEDS: MELATONIN 3 MG TABLET PO SCH (20:48)
[2022-01-23] MEDS: ACETAMINOPHEN TAB 325 MG TAB PO PRN ×2 (01:26→07:42)
[2022-01-23 06:56] VITALS: BP 116/76; PULSE 64; TEMP 97.8
[2022-01-23] MEDS: BENZTROPINE MESYLATE 0.5 MG TAB PO SCH (07:41)
[2022-01-23] MEDS: NICOTINE 14MG/24HR PATCH TRANSDERM SCH (07:41)
[2022-01-23] MEDS: lamoTRIgine 100 MG TAB PO SCH (07:42)
[2022-01-23] MEDS: SYMBICORT 80-4.5 MCG INHALER (MHU) INHALATION SCH (08:48)
[2022-01-23] MEDS: TIOTROPIUM 2.5 MCG INHALER (MHU) INHALATION SCH (08:49)
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
== END 2022-01-23 12:05 | disposition home or self-care (01) | DRG 897 ==
LOC: EC 08:27 → 3MHU 19:30
PROVIDERS: ADMIT Psychiatry & Neurology Psychiatry; ATTEND Psychiatry & Neurology Psychiatry
DX: F19.159 Other psychoactive substance abuse with psychoactive substance-induced psychotic disorder, unspecified (principal); F12.10 Cannabis abuse, uncomplicated; F14.10 Cocaine abuse, uncomplicated; F17.210 Nicotine dependence, cigarettes, uncomplicated; F20.9 Schizophrenia, unspecified; F41.9 Anxiety disorder, unspecified; F90.9 Attention-deficit hyperactivity disorder, unspecified type; F31.9 Bipolar disorder, unspecified; G47.00 Insomnia, unspecified; J44.9 Chronic obstructive pulmonary disease, unspecified; K59.00 Constipation, unspecified; Z79.899 Other long term (current) drug therapy; Z91.410 Personal history of adult physical and sexual abuse; Z91.83 Wandering in diseases classified elsewhere; Z20.822 Contact with and (suspected) exposure to COVID-19; Z71.51 Drug abuse counseling and surveillance of drug abuser; Z56.0 Unemployment, unspecified
CPT/HCPCS: 80053; 80061; 80306; 81001; 82075; 83036; 84443; 85025; 87635; 96372; 99285

== ENCOUNTER 2022-02-25 21:55 | Emergency (ER) | payer OTHER ==
[2022-02-25 22:23] VITALS: TEMP 98
[2022-02-25] MEDS ORDERED: GLUCAGON 1 MG/ML VIAL IVP STA (23:37)
--- NOTE | 2022-02-25 23:39 | XR ---
EXAMINATION TYPE: XR soft tissue neck DATE OF EXAM: 02/25/2022 COMPARISON: NONE HISTORY: Foreign body in the throat. TECHNIQUE: 2 views FINDINGS: Epiglottis is normal. There is no evidence of a pharyngeal or esophageal foreign body. Subg lottic trachea appears normal. Prevertebral soft tissues appear normal. IMPRESSION: Negative cervical soft tissue exam. There is noted some degenerative C4-5 subluxation def ormity with spondylosis noted at C5-6.
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
--- NOTE | 2022-02-25 23:48 | XR ---
EXAMINATION TYPE: XR chest 2V DATE OF EXAM: 02/25/2022 COMPARISON: 01/25/2022 HISTORY: Possible foreign body TECHNIQUE: FINDINGS: Heart and mediastinum are normal. Lungs are clear. Diaphragm is normal. Bony thorax is inta ct. Costophrenic angles are clear. IMPRESSION: No active cardiopulmonary disease. No evidence of a foreign body. No change.
[2022-02-25] MEDS ORDERED: ONDANSETRON 4 MG/2 ML VIAL IVP STA (23:56)
[2022-02-25] MEDS ORDERED: LORazepam 2 MG/ML INJ IV STA (23:56)
[2022-02-26 00:50] VITALS: BP 132/90; PULSE 102; RESP 18
== END 2022-02-26 01:10 ==
LOC: EC 21:55
DX: T18.108A Unspecified foreign body in esophagus causing other injury, initial encounter (principal); J44.9 Chronic obstructive pulmonary disease, unspecified; F31.9 Bipolar disorder, unspecified; F41.9 Anxiety disorder, unspecified; F20.9 Schizophrenia, unspecified; F17.200 Nicotine dependence, unspecified, uncomplicated; F12.90 Cannabis use, unspecified, uncomplicated; F15.90 Other stimulant use, unspecified, uncomplicated; Z79.51 Long term (current) use of inhaled steroids; Z79.899 Other long term (current) drug therapy; X58.XXXA Exposure to other specified factors, initial encounter
CPT/HCPCS: 70360; 71046; 99284; 96374; 96375 ×2; J2060; J1610; J2405

== ENCOUNTER → 2022-04-11 | Outpatient (CLI) | payer OTHER ==
--- NOTE | 2022-04-12 19:28 | MM ---
Reason for Exam: Screening (asymptomatic). Last mammogram was performed 2 year(s) and 5 month(s) ago. Patient History: Menarche at age 14. First Full-Term at age 24. Postmenopausal. Risk Values: Mariel 5 year model risk: 1.1%. NCI Lifetime model risk: 7.4%. Prior Study Comparison: 08/10/2015 Bilateral Screening Mammogram, [facility]. 08/22/2018 Bilateral Screening Mammogram, [facility]. 12/11/2019 Bilateral Screening Mammogram, [facility]. Tissue Density: The breast tissue is heterogeneously dense. This may lower the sensitivity of mammography. Findings: Analyzed By CAD. There is chronic nodularity lateral posterior right breast. 2 areas of asymmetric density 1:00 central left breast and anterior depth and middle depth are more defined. Further evaluation is recommended. Overall Assessment: Incomplete: need additional imaging evaluation, BI-RAD 0 Management: Special View Mammogram of the left breast. 1. Additional views left breast include spot 3-D CC, spot MLO, and 3-D ML views. 2. Targeted left breast ultrasound for any persisting abnormality. Electronically signed and approved by: Yulissa Long M.D. Radiologist
== END | disposition home or self-care (01) ==
LOC: RADMAMWWP 16:14
PROVIDERS: ATTEND Family Medicine
DX: Z12.31 Encounter for screening mammogram for malignant neoplasm of breast (principal); Z78.0 Asymptomatic menopausal state
CPT/HCPCS: 77067

== ENCOUNTER → 2022-04-19 | Outpatient (CLI) | payer OTHER ==
--- NOTE | 2022-04-19 08:54 | MM ---
Reason for Exam: Additional evaluation requested from abnormal screening. Last screening mammogram was performed less than 1 month ago. Patient History: Menarche at age 14. First Full-Term at age 24. Postmenopausal. Risk Values: Mariel 5 year model risk: 1.1%. NCI Lifetime model risk: 7.4%. Prior Study Comparison: 08/22/2018 Bilateral Screening Mammogram, [facility]. 12/11/2019 Bilateral Screening Mammogram, [facility]. 04/11/2022 Bilateral MG screening mammo w CAD, [facility]. Tissue Density: Left: The breast tissue is heterogeneously dense. This may lower the sensitivity of mammography. Findings: Analyzed By CAD. Mammogram There is a persistent 1.3 cm density with circumscribed margins 5 cm from the nipple.. Technique: Method: Targeted. Findings: The upper outer quadrant of the left breast, the axilla of the left breast and the retroareolar of the left breast were scanned. There is a circumscribed isoechoic to slightly hypoechoic nodule corresponding to the mammographic finding measuring 1.5 x 1.0 x 1.3 cm. Biopsy is recommended. Overall Assessment: Suspicious, BI-RAD 4 Assessment: MG work up mamm w CAD LT - Left: Suspicious, BI-RAD 4. US breast workup limited LT - Left: Suspicious, BI-RAD 4. Management: Ultrasound Core Biopsy of the left breast. A clinical breast exam by your physician is recommended on an annual basis and results should be correlated with mammographic findings. Results were given to the patient verbally at the time of exam. Electronically signed and approved by: Virgil Correa D.O. Radiologis
== END | disposition home or self-care (01) ==
LOC: RADMAMWWP 07:42
PROVIDERS: ATTEND Family Medicine
DX: R92.8 Other abnormal and inconclusive findings on diagnostic imaging of breast (principal); Z78.0 Asymptomatic menopausal state
CPT/HCPCS: 77065

== ENCOUNTER → 2022-04-30 | Day surgery (SDC) | payer OTHER ==
--- NOTE | 2022-05-03 11:51 | USB ---
Reason for Exam: Post Procedure Mammogram. Last screening mammogram was performed less than 1 month ago. Patient History: Menarche at age 14. First Full-Term at age 24. Postmenopausal. Risk Values: Mariel 5 year model risk: 1.1%. NCI Lifetime model risk: 7.4%. Prior Study Comparison: 12/11/2019 Bilateral Screening Mammogram, [facility]. 04/11/2022 Bilateral MG screening mammo w CAD, [facility]. 04/19/2022 Left MG work up mamm w CAD LT, [facility]. Tissue Density: Left: The breast tissue is heterogeneously dense. This may lower the sensitivity of mammography. Pathology Description: Location: 1 o'clock, upper outer quadrant. Marker Left Behind. Needle Type: Mammotome Cores: 7 Skin Nicks: 1 Gauge: 13 Pathology Results: Result: Benign, Fibroadenoma. LEFT BREAST, 1:00 POSITION, CORE BIOPSY: Favor fragments of fibroadenoma with fibroadenomatoid stromal hyperplasia, fibrocystic change with apocrine metaplasia and columnar cell change and moderate to florid usual ductal hyperplasia. Overall Assessment: Benign Assessment: MG diagnostic mammo LT wo CAD. - Left: Benign, BI-RAD 2. Management: Diagnostic Mammogram of the left breast in 6 months. Electronically signed and approved by: Virgil Correa D.O. Radiologis
== END ==
LOC: RADUSWWP 12:44
PROVIDERS: ATTEND Surgery
DX: D24.2 Benign neoplasm of left breast (principal); N60.11 Diffuse cystic mastopathy of right breast; N60.82 Other benign mammary dysplasias of left breast; N62 Hypertrophy of breast; R92.8 Other abnormal and inconclusive findings on diagnostic imaging of breast
CPT/HCPCS: 88305; 77065; 19083; A4648

== ENCOUNTER → 2022-10-31 | Outpatient (CLI) | payer OTHER ==
--- NOTE | 2022-10-31 10:04 | MM ---
Reason for Exam: Hx of benign breast biopsy. Last screening mammogram was performed 6 month(s) ago. Patient History: Menarche at age 14. First Full-Term at age 24. Postmenopausal. 04/30/2022, Benign US biopsy breast VAD LT on the left side. Risk Values: Mariel 5 year model risk: 1.3%. NCI Lifetime model risk: 8.5%. Prior Study Comparison: 04/11/2022 Bilateral MG screening mammo w CAD, [facility]. 04/19/2022 Left MG work up mamm w CAD LT, [facility]. 04/30/2022 Left MG diagnostic mammo LT wo CAD., [facility]. Tissue Density: Left: The breast tissue is heterogeneously dense. This may lower the sensitivity of mammography. Findings: Analyzed By CAD. There is a stable rounded density adjacent to the coil clip in the upper outer left mid breast previously biopsied. No suspicious groups of microcalcifications, spiculated or lobular masses, architectural distortion or other secondary signs of malignancy are mammographically apparent. Overall Assessment: Benign, BI-RAD 2 Management: Screening Mammogram of both breasts in 6 months. A negative mammogram report should not preclude additional follow up of suspicious palpable abnormalities. Patient should continue monthly self breast exam. A clinical breast exam by your physician is recommended on an annual basis and results should be correlated with mammographic findings. Electronically signed and approved by: Virgil Correa D.O. Radiologis
== END | disposition home or self-care (01) ==
LOC: RADMAMWWP 09:10
PROVIDERS: ATTEND Surgery
DX: R92.8 Other abnormal and inconclusive findings on diagnostic imaging of breast (principal); Z78.0 Asymptomatic menopausal state
CPT/HCPCS: 77065

== ENCOUNTER 2022-12-19 03:36 | Emergency (ER) | payer OTHER ==
[2022-12-19 03:41] VITALS: PULSE 64; RESP 16; TEMP 97.9
[2022-12-19] MEDS ORDERED: ONDANSETRON 4 MG/2 ML VIAL IVP STA (03:45)
[2022-12-19] MEDS ORDERED: HYDROmorphone 1 MG/ML 1 ML SYRINGE IVP STA (03:45)
[2022-12-19] MEDS ORDERED: SODIUM CHLORIDE 0.9% 1,000 ML IV STA (03:45)
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
[2022-12-19 04:17] LABS: Basophils # (A) 0.1 k/uL (0-0.2); Basophils % (A) 1 %; Eosinophils # (A) 0.3 k/uL (0-0.7); Eosinophils % (A) 2 %; HCT 42.3 % (34.0-46.0); Hyperchromasia Slight; Lymphocytes % (A) 37 %; MCH 29.7 pg (25.0-35.0); MCHC 35.4 g/dL (31.0-37.0); MCV 83.8 fL (80.0-100.0); Mean Platelet Volume 7.6; Monocytes # (A) 0.6 k/uL (0-1.0); Monocytes % (A) 5 %; Neutrophils # (A) 5.9 k/uL (1.3-7.7); Neutrophils % (A) 54 %; Platelet Count 241 k/uL (150-450); RBC 5.05 m/uL (3.80-5.40); RDW 12.8 % (11.5-15.5)
[2022-12-19 04:34] LABS: Chloride 106 mmol/L (98-107); Potassium 3.8 mmol/L (3.5-5.1); Sodium 138 mmol/L (137-145)
[2022-12-19 04:35] LABS: ALT 22 U/L (4-34); AST 18 U/L (14-36); African American GFR (CKD) >90 (>60 ml/min/1.73 sqM); Albumin 4.3 g/dL (3.5-5.0); Alkaline Phosphatase 60 U/L (38-126); Amylase 65 U/L (30-110); Anion Gap 9 mmol/L; Blood Urea Nitrogen 16 mg/dL (7-17); Carbon Dioxide 23 mmol/L (22-30); Glucose 111 mg/dL (74-99); Lipase 157 U/L (23-300); Non-African American GFR(CKD) 90 (>60 ml/min/1.73 sqM); Total Bilirubin 0.5 mg/dL (0.2-1.3); Total Protein 7.2 g/dL (6.3-8.2)
--- NOTE | 2022-12-19 05:30 | CT ---
EXAMINATION TYPE: CT abdomen pelvis w con DATE OF EXAM: 12/19/2022 HISTORY: blood in stool CT DLP: 983.9mGycm Automated Exposure Control for Dose Reduction was Utilized. CONTRAST: CT scan of the abdomen and pelvis is performed without oral and with IV Contrast, patient injected wi th 100 mL of Isovue 300. COMPARISON: None. FINDINGS: LUNG BASES: Mild left basilar linear scarring and/or atelectasis. LIVER/GB: No significant abnormality is appreciated. PANCREAS: No significant abnormality is seen. SPLEEN: No significant abnormality is seen. ADRENALS: No significant abnormality is seen. KIDNEYS: No significant abnormality is seen. BOWEL: Slightly suboptimal evaluation without enteric contrast. No suspicious small or large bowel di latation is seen. Focal mild/moderate wall thickening in the colon near the hepatic flexure extending into the transverse colon through the splenic flexure into the left colon no significant surrounding fluid or fat stranding noted. Mild wall thickening in the sigmoid rectal colon is present. No free o r mesenteric air. UTERUS/ADNEXA: Anteverted uterus. Tubal ligation clips along the periphery. Scattered bilateral pelvi c phleboliths. LYMPH NODES: No greater than 1cm abdominal or pelvic lymph nodes are appreciated. OSSEOUS STRUCTURES: No significant abnormality is seen. OTHER: No significant additional abnormality is seen. IMPRESSION: Possible mild uncomplicated colitis versus product of poor distention. Correlate clinical ly. Differential includes infectious, inflammatory, and ischemic etiologies.
[2022-12-19 06:25] VITALS: BP 111/78
== END 2022-12-19 06:15 | disposition home or self-care (01) ==
LOC: EC 03:36
DX: R10.9 Unspecified abdominal pain (principal); F17.200 Nicotine dependence, unspecified, uncomplicated; F12.90 Cannabis use, unspecified, uncomplicated; J44.9 Chronic obstructive pulmonary disease, unspecified
CPT/HCPCS: 36415; 80053; 82150; 83605; 83690; 85025; 74177; 99284; 96374; 96375; 96361; J2405; J1170; Q9967

== ENCOUNTER → 2023-04-22 | Outpatient (CLI) | payer OTHER ==
--- NOTE | 2023-04-23 14:45 | MM ---
Reason for Exam: Screening (asymptomatic). Last screening mammogram was performed 12 month(s) ago. Patient History: Menarche at age 14. First Full-Term at age 24. Postmenopausal. 04/30/2022, Benign US biopsy breast VAD LT on the left side. Risk Values: Mariel 5 year model risk: 1.3%. NCI Lifetime model risk: 8.5%. Prior Study Comparison: 04/19/2022 Left MG work up mamm w CAD LT, [facility]. 04/30/2022 Left MG diagnostic mammo LT wo CAD., [facility]. 10/31/2022 Left MG diagnostic mammo LT w CAD, [facility]. Tissue Density: The breast tissue is heterogeneously dense. This may lower the sensitivity of mammography. Findings: Analyzed By CAD. There is no suspicious group of microcalcifications or new suspicious mass in either breast. Chronic nodularity within both breasts appears stable. There is associated biopsy clip with the left nodule. Overall Assessment: Benign, BI-RAD 2 Management: Screening Mammogram of both breasts in 1 year. A clinical breast exam by your physician is recommended on an annual basis and results should be correlated with mammographic findings. Note on Mariel scores and lifetime risk: 1. A Mariel score greater than 3% is considered moderate risk. If this is the case, consider specialist referral to assess eligibility for a risk reducing agent. If overall lifetime risk for the development of breast cancer is 20% or higher, the patient may qualify for future screening with alternating mammogram and breast MRI. Electronically signed and approved by: Markell Mg D.O.
== END | disposition home or self-care (01) ==
LOC: RADMAMWWP 10:00
PROVIDERS: ATTEND Surgery
DX: Z12.31 Encounter for screening mammogram for malignant neoplasm of breast (principal); Z78.0 Asymptomatic menopausal state
CPT/HCPCS: 77067

== ENCOUNTER → 2023-12-09 | Outpatient (CLI) | payer OTHER ==
--- NOTE | 2023-12-09 08:54 | CTL ---
EXAMINATION TYPE: CT Low Dose Lung DATE OF EXAM ORDERED: 12/09/2023 HISTORY: Tobacco dependent syndrome, current smoker, COPD. Lung cancer screening CT DLP: [address] CTDI: 1.95 mGy Automated exposure control for dose reduction was used. SCREENING VISIT: First screening visit COMPARISON: Chest radiograph 02/25/2022 TECHNIQUE: Low dose computed tomography scan was performed through the chest at 1 mm thick sections a nd reconstructed images in multiple planes at 1 mm and [address] DIAGNOSTIC QUALITY: Satisfactory FINDINGS: LUNG NODULES: Left lower lobe 5 mm pulmonary nodule (series 10, image 18). LUNGS: COPD: Severity: Mild Fibrosis: Severity: None Lymph nodes: None Other findings: None RIGHT PLEURAL SPACE: Effusion: None Calcification: None Thickening: None Pneumothorax: None LEFT PLEURAL SPACE: Effusion: None Calcification: None Thickening: None Pneumothorax: None HEART: Heart Size: Normal Coronary Calcification: None Pericardial Effusion: None OTHER FINDINGS: Upper abdomen: Small hiatal hernia. Bony thorax: None Supraclavicular region: None Other: None IMPRESSION: 1. Left lower lobe 5 mm pulmonary nodule. 2. Mild COPD changes. CT LUNG RAD AND CT CHEST RECOMMENDATION: Lung-Rad 2 Benign Appearance or Behavior: Continue annual sc reening with LDCT in 12 months. S Modifier (other clinically significant findings): None
== END | disposition home or self-care (01) ==
LOC: RADCTMAIN 08:08
PROVIDERS: ATTEND Family Medicine
DX: Z12.2 Encounter for screening for malignant neoplasm of respiratory organs (principal); F17.210 Nicotine dependence, cigarettes, uncomplicated; J44.9 Chronic obstructive pulmonary disease, unspecified; R91.1 Solitary pulmonary nodule
CPT/HCPCS: 71271